=== PATIENT | female | born 1980 | race Caucasian/White ===

== ENCOUNTER 2016-11-25 14:02 | Emergency (ER) | payer OTHER ==
[2016-11-25] MEDS ORDERED: ONDANSETRON 4 MG/2 ML VIAL IVP STA (14:42)
--- NOTE | 2016-11-25 14:46 | ED ---
Abdominal Pain HPI - General Chief Complaint: Abdominal Pain Stated Complaint: Rt Flank Pain Time Seen by Provider: 11/25/16 14:27 Source: patient Mode of arrival: ambulatory Limitations: no limitations - History of Present Illness Initial Comments: 36-year-old female onset of abdominal pain for 4 days getting worse right upper quadrant feels like she is urinate but can't has had some darkening of the urine. No dysuria. No history kidney stones. He has some flank tenderness and pain. Previous history of gallbladder surgery. Has been nauseated no vomiting no diarrhea. - Related Data Home Medications Medication Instructions Recorded Confirmed FLUoxetine HCL [PROzac] 20 mg PO DAILY 11/25/16 11/25/16 traMADol HCL [Ultram] 50 mg PO Q6HR PRN 11/25/16 11/25/16 Previous Rx's Medication Instructions Recorded Amoxic-Pot Clav 875-125Mg 1 tab PO Q12HR #20 tablet 11/25/16 [Augmentin 875-125] Fluconazole [Diflucan] 100 mg PO DAILY #5 tablet 11/25/16 HYDROcodone/APAP 5-325MG [[place] 1 each PO Q6HR PRN #12 tab 11/25/16 5-325] Ondansetron Odt [Zofran Odt] 4 mg PO Q8HR PRN #6 tab 11/25/16 Allergies Allergy/AdvReac Type Severity Reaction Status Date / Time diclofenac sodium Allergy Unknown Verified 11/25/16 15:10 [From Arthrotec] misoprostol [From Arthrotec] Allergy Unknown Verified 11/25/16 15:10 Review of Systems ROS Statement: Those systems with pertinent positive or pertinent negative responses have been documented in the HPI. ROS Other: All systems not noted in ROS Statement are negative. Constitutional: Denies: fever, chills ENT: Denies: throat pain Respiratory: Denies: cough Cardiovascular: Reports: chest pain (Mild epigastric and frontal pain with deep breath) Gastrointestinal: Reports: abdominal pain, nausea. Denies: vomiting, diarrhea Genitourinary: Reports: urgency, frequency, other (Last period 2 days ago was normal). Denies: dysuria Skin: Denies: rash Neurological: Denies: headache Psychiatric: Denies: anxiety, depression Hematological/Lymphatic: Denies: easy bleeding, easy bruising Past Medical History Additional Past Medical History / Comment(s): rib fx History of Any Multi-Drug Resistant Organisms: None Reported Past Surgical History: Section, Cholecystectomy Past Psychological History: No Psychological Hx Reported Smoking Status: Never smoker Past Alcohol Use History: Rare Past Drug Use History: None Reported General Exam Limitations: no limitations General appearance: alert Head exam: Present: atraumatic Eye exam: Present: PERRL, EOMI ENT exam: Present: normal oropharynx, mucous membranes moist, TM's normal bilaterally Neck exam: Absent: tenderness Respiratory exam: Present: normal lung sounds bilaterally Cardiovascular Exam: Present: regular rate, normal heart sounds. Absent: systolic murmur GI/Abdominal exam: Present: tenderness (Tenderness right flank and right lower quadrant no rebound or guarding). Absent: guarding, rebound Extremities exam: Present: normal inspection Neurological exam: Present: alert, CN II-XII intact Psychiatric exam: Present: normal affect, normal mood Skin exam: Present: warm, dry Course Vital Signs 11/25/16 11/25/16 14:22 16:42 Temperature 98.1 F Pulse Rate 86 74 Respiratory 18 14 Rate Blood Pressure 157/78 124/64 O2 Sat by Pulse 97 96 Oximetry Medical Decision Making - Lab Data Result diagrams: 11/25/16 15:21 11/25/16 15:21 Lab Results 11/25/16 11/25/16 11/25/16 Range/Units 15:21 15:21 15:21 WBC 8.9 (3.8-10.6) k/uL RBC 4.58 (3.80-5.40) m/uL Hgb 13.8 (11.4-16.0) gm/dL Hct 41.4 (34.0-46.0) % MCV 90.4 (80.0-100.0) fL MCH 30.0 (25.0-35.0) pg MCHC 33.2 (31.0-37.0) g/dL RDW 13.2 (11.5-15.5) % Plt Count 478 H (150-450) k/uL Neutrophils % 68 % Lymphocytes % 23 % Monocytes % 5 % Eosinophils % 2 % Basophils % 1 % Neutrophils # 6.1 (1.3-7.7) k/uL Lymphocytes # 2.0 (1.0-4.8) k/uL Monocytes # 0.4 (0-1.0) k/uL Eosinophils # 0.2 (0-0.7) k/uL Basophils # 0.1 (0-0.2) k/uL Sodium 141 (137-145) mmol/L Potassium 4.0 (3.5-5.1) mmol/L Chloride 104 (98-107) mmol/L Carbon Dioxide 28 (22-30) mmol/L Anion Gap 9 mmol/L BUN 11 (7-17) mg/dL Creatinine 0.66 (0.52-1.04) mg/dL Est GFR (MDRD) Af Amer >60 (>60 ml/min/1.73 sqM) Est GFR (MDRD) Non-Af >60 (>60 ml/min/1.73 sqM) Glucose 96 (74-99) mg/dL Calcium 9.1 (8.4-10.2) mg/dL Total Bilirubin 0.7 (0.2-1.3) mg/dL AST 23 (14-36) U/L ALT 25 (9-52) U/L Alkaline Phosphatase 71 (38-126) U/L Total Protein 7.2 (6.3-8.2) g/dL Albumin 4.3 (3.5-5.0) g/dL Urine Color Yellow Urine Appearance Clear (Clear) Urine pH 5.5 (5.0-8.0) Ur Specific [place] 1.019 (1.001-1.035) Urine Protein Negative (Negative) Urine Glucose (UA) Negative (Negative) Urine Ketones Negative (Negative) Urine Blood Negative (Negative) Urine Nitrate Negative (Negative) Urine Bilirubin Negative (Negative) Urine Urobilinogen <2.0 (<2.0) mg/dL Ur Leukocyte Esterase Negative (Negative) Urine HCG, Qual (Not Detectd) 11/25/16 Range/Units 15:21 WBC (3.8-10.6) k/uL RBC (3.80-5.40) m/uL Hgb (11.4-16.0) gm/dL Hct (34.0-46.0) % MCV (80.0-100.0) fL MCH (25.0-35.0) pg MCHC (31.0-37.0) g/dL RDW (11.5-15.5) % Plt Count (150-450) k/uL Neutrophils % % Lymphocytes % % Monocytes % % Eosinophils % % Basophils % % Neutrophils # (1.3-7.7) k/uL Lymphocytes # (1.0-4.8) k/uL Monocytes # (0-1.0) k/uL Eosinophils # (0-0.7) k/uL Basophils # (0-0.2) k/uL Sodium (137-145) mmol/L Potassium (3.5-5.1) mmol/L Chloride (98-107) mmol/L Carbon Dioxide (22-30) mmol/L Anion Gap mmol/L BUN (7-17) mg/dL Creatinine (0.52-1.04) mg/dL Est GFR (MDRD) Af Amer (>60 ml/min/1.73 sqM) Est GFR (MDRD) Non-Af (>60 ml/min/1.73 sqM) Glucose (74-99) mg/dL Calcium (8.4-10.2) mg/dL Total Bilirubin (0.2-1.3) mg/dL AST (14-36) U/L ALT (9-52) U/L Alkaline Phosphatase (38-126) U/L Total Protein (6.3-8.2) g/dL Albumin (3.5-5.0) g/dL Urine Color Urine Appearance (Clear) Urine pH (5.0-8.0) Ur Specific [place] (1.001-1.035) Urine Protein (Negative) Urine Glucose (UA) (Negative) Urine Ketones (Negative) Urine Blood (Negative) Urine Nitrate (Negative) Urine Bilirubin (Negative) Urine Urobilinogen (<2.0) mg/dL Ur Leukocyte Esterase (Negative) Urine HCG, Qual Not Detected (Not Detectd) - Radiology Data Radiology results: report reviewed Flat plate of abdomen and chest x-ray is negative CT shows mid sigmoid diverticulitis, no stone no appendix. Disposition Clinical Impression: Diverticulitis Disposition: HOME SELF-CARE Condition: Good Prescriptions: Amoxic-Pot Clav 875-125Mg [Augmentin 875-125] 1 tab PO Q12HR #20 tablet Fluconazole [Diflucan] 100 mg PO DAILY #5 tablet HYDROcodone/APAP 5-325MG [[place] 5-325] 1 each PO Q6HR PRN #12 tab PRN Reason: Pain Ondansetron Odt [Zofran Odt] 4 mg PO Q8HR PRN #6 tab PRN Reason: Vomiting Referrals: Marcia Canales MD [Primary Care Provider] - 1-2 days Time of Disposition: 17:43
[2016-11-25] MEDS: HYDROmorphone 1 MG/ML 1 ML SYRINGE IVP STA ×2 (15:31→17:18)
[2016-11-25 15:35] LABS: Appearance,Urine Clear (Clear); Basophils # (A) 0.1 k/uL (0-0.2); Basophils % (A) 1 %; Bilirubin,Urine Negative (Negative); CHCM 33.3; Eosinophils # (A) 0.2 k/uL (0-0.7); Eosinophils % (A) 2 %; Glucose,Urine (UA) Negative (Negative); HCT 41.4 % (34.0-46.0); HDW 2.33; HGB 13.8 gm/dL (11.4-16.0); Ketones,Urine Negative (Negative); Leukocyte Esterase,Urine Negative (Negative); Luc # (Auto) 0.16; Luc % (Auto) 2; Lymphocytes % (A) 23 %; MCHC 33.2 g/dL (31.0-37.0); MCV 90.4 fL (80.0-100.0); Mean Platelet Volume 7.9; Monocytes # (A) 0.4 k/uL (0-1.0); Monocytes % (A) 5 %; Neutrophils # (A) 6.1 k/uL (1.3-7.7); Neutrophils % (A) 68 %; Nitrite,Urine Negative (Negative); PH, Urine 5.5 (5.0-8.0); Protein,Urine Negative (Negative); RBC 4.58 m/uL (3.80-5.40); RDW 13.2 % (11.5-15.5); Specific Gravity,Urine 1.019 (1.001-1.035); UA Billing (MACRO vs. MICRO) CHEM; Urobilinogen,Urine <2.0 mg/dL (<2.0); WBC 8.9 k/uL (3.8-10.6); WBC (Perox) 8.03
[2016-11-25 15:46] LABS: ALT 25 U/L (9-52); AST 23 U/L (14-36); Alkaline Phosphatase 71 U/L (38-126); Anion Gap 9 mmol/L; Blood Urea Nitrogen 11 mg/dL (7-17); Calcium 9.1 mg/dL (8.4-10.2); Carbon Dioxide 28 mmol/L (22-30); Chloride 104 mmol/L (98-107); Glucose 96 mg/dL (74-99); Non-African American GFR(MDRD) >60 (>60 ml/min/1.73 sqM); Sodium 141 mmol/L (137-145); Total Bilirubin 0.7 mg/dL (0.2-1.3); Total Protein 7.2 g/dL (6.3-8.2)
--- NOTE | 2016-11-25 15:59 | XR ---
EXAMINATION TYPE: XR chest 2V DATE OF EXAM: 11/25/2016 3:42 PM COMPARISON: 09/24/2015 HISTORY: 36-year-old female pain with deep inspiration TECHNIQUE: PA and lateral views FINDINGS: The cardiomediastinal silhouette, aorta, and pulmonary vasculature are within normal limits. Lungs an d pleural spaces are clear. IMPRESSION: No acute cardiopulmonary process.
--- NOTE | 2016-11-25 16:00 | XR ---
EXAMINATION TYPE: XR KUB DATE OF EXAM: 11/25/2016 3:42 PM CLINICAL DATA: 36-year-old female with abdominal pain, [facility] COMPARISON: 12/22/2012 FINDINGS: Lung bases are clear. No evidence for free intraperitoneal air. Cholecystectomy clips. No dilated small bowel or air-fluid levels. Scattered air and stool seen throughout the colon extendi ng distally into the rectum. Mild overall stool. No suspicious calcifications identified. Stable sclerotic focus right iliac bone suggests a benign etiology. There is right L5 hemisacralizati on incidentally noted. IMPRESSION: No evidence for free air or bowel obstruction. Mild scattered stool. Incidental right L5 hemisacraliz ation.
--- NOTE | 2016-11-25 16:33 | CT ---
EXAMINATION TYPE: CT abdomen pelvis wo con DATE OF EXAM: 11/25/2016 4:26 PM COMPARISON: NONE HISTORY: 36-year-old female Patient complains of right flank pain. CT DLP: 843.4 mGycm. Automated exposure control for dose reduction was used. TECHNIQUE: Contiguous axial scanning of the abdomen and pelvis without IV contrast. Coronal and sagit norma reconstructions performed. FINDINGS: Heart is normal size without pericardial effusion. Some patchy atelectasis inferior lingula without p leural effusion. The liver is mildly enlarged measuring 18 cm craniocaudal. No significant hepatic steatosis appreciat ed. Cholecystectomy clips. Adrenal glands, kidneys, spleen with hilar splenule, and pancreas appear within normal limits. No dilated small bowel, free fluid, or free air. No mesenteric or retroperitoneal lymphadenopathy. There is diffuse colonic diverticulosis with a short segment moderate wall thickening and surrounding inflammatory fat stranding along the mid to distal sigmoid, axial image 125. Bladder is partially urine distended. Uterus and both ovaries are visualized. Prominent follicular ch alessio in both ovaries. No abnormal fluid collection in the pelvis or pelvic lymphadenopathy seen. Bones: Degenerative disc disease at L4-L5 with trace grade 1 retrolisthesis. No osseous destructive p rocess. IMPRESSION: Diffuse colonic diverticulosis with acute diverticulitis at the level of the mid to distal sigmoid. T here is moderate surrounding inflammation without evidence for abscess or free air.
[2016-11-25 16:43] VITALS: RESP 14
[2016-11-25 18:02] VITALS: BP 114/70; PULSE 73; TEMP 97.1
== END 2016-11-25 18:19 | disposition home or self-care (01) ==
LOC: EC 14:02
DX: K57.32 Diverticulitis of large intestine without perforation or abscess without bleeding (principal); Z79.899 Other long term (current) drug therapy; Z88.8 Allergy status to other drugs, medicaments and biological substances; Z79.891 Long term (current) use of opiate analgesic
CPT/HCPCS: 36415; 80053; 85025; 81003; 81025; 87086; 87077; 87186; 71020; 74000; 74176; 99284; 96365; 96375 ×2; J2405; J0696; J1170

== ENCOUNTER 2016-12-11 14:52 | Inpatient (IN) | payer OTHER ==
[2016-12-11] MEDS ORDERED: MORPHINE SULFATE 4 MG/ML SYRINGE IV STA (15:58)
[2016-12-11] MEDS ORDERED: SODIUM CHLORIDE 0.9% 1,000 ML IV STA (15:58)
--- NOTE | 2016-12-11 16:03 | ED ---
General Adult HPI - General Chief complaint: Abdominal Pain Stated complaint: abdominal pain Time Seen by Provider: 12/11/16 15:53 Source: patient, RN notes reviewed Mode of arrival: ambulatory Limitations: no limitations - History of Present Illness Initial comments: Patient is a 36-year-old female who presents emergency room today with a chief complaint of right lower quadrant pain over the last 2 days. Patient does admit to symptoms her symptoms. Weeks ago when she was diagnosed with diverticulitis. Patient's labs reviewed that time did have a positive urinary culture. Patient does admit that the symptoms feel consistent with urinary tract infection that she's also had in the past. She denies any complaints or symptoms.Patient denies any recent fever, chills, shortness of breath, chest pain, back pain, nausea or vomiting, numbness or tingling, dysuria or hematuria , constipation or diarrhea, headaches or visual changes, or any other complaints. - Related Data Home Medications Medication Instructions Recorded Confirmed traMADol HCL [Ultram] 50 mg PO Q6HR PRN 11/25/16 12/11/16 FLUoxetine HCL [PROzac] 10 mg PO BID 12/11/16 12/11/16 HYDROcodone/APAP 7.5-325MG [[place] 1 tab PO Q6H PRN 12/11/16 12/11/16 7.5-325] Ibuprofen [Motrin] 600 mg PO Q8HR PRN 12/11/16 12/11/16 Allergies Allergy/AdvReac Type Severity Reaction Status Date / Time diclofenac sodium Allergy Unknown Verified 12/11/16 16:13 [From Arthrotec] misoprostol [From Arthrotec] Allergy Unknown Verified 12/11/16 16:13 Review of Systems ROS Statement: Those systems with pertinent positive or pertinent negative responses have been documented in the HPI. ROS Other: All systems not noted in ROS Statement are negative. Past Medical History Additional Past Medical History / Comment(s): rib fx History of Any Multi-Drug Resistant Organisms: None Reported Past Surgical History: Section, Cholecystectomy Past Psychological History: No Psychological Hx Reported Smoking Status: Never smoker Past Alcohol Use History: Rare Past Drug Use History: None Reported General Exam - General Exam Comments Initial Comments: General: The patient is awake and alert, in no distress, and does not appear acutely ill. Eye: Pupils are equal, round and reactive to light, extra-ocular movements are intact. No nystagmus. There is normal conjunctiva bilaterally. No signs of icterus. Ears, nose, mouth and throat: There are moist mucous membranes and no oral lesions. Neck: The neck is supple, there is no tenderness or JVD. Cardiovascular: There is a regular rate and rhythm. No murmur, rub or gallop is appreciated. Respiratory: Lungs are clear to auscultation, respirations are non-labored, breath sounds are equal. No wheezes, stridor, rales, or rhonchi. Gastrointestinal: Normal appearance abdomen. Normal bowel sounds. Abdomen soft on palpation. Patient does have mild tenderness right lower quadrant and suprapubic over the bladder. No rebound tenderness. No guarding. No CVA tenderness. Musculoskeletal: Normal ROM, no tenderness. Strength 5/5. Sensation intact. Pulses equal bilaterally 2+. Neurological: A&O x 3. CN II-XII intact, There are no obvious motor or sensory deficits. Coordination appears grossly intact. Speech is normal. Skin: Skin is warm and dry and no rashes or lesions are noted. Psychiatric: Cooperative, appropriate mood & affect, normal judgment. Limitations: no limitations Course Vital Signs 12/11/16 12/11/16 15:01 18:32 Temperature 97.3 F L 97.9 F Pulse Rate 82 92 Respiratory 18 18 Rate Blood Pressure 118/49 114/80 O2 Sat by Pulse 100 98 Oximetry Medical Decision Making - Medical Decision Making Patient reexamined at this time shows no signs of stress is resting comfortably in the stretcher. Does admit that her pain is beginning to return. Patient's labs reviewed shows 14,[address] shows persistent acute diverticulitis with mid sigmoid colon in the right pelvis. There is increasing severe wall thickening now present. Decreased round inflammatory change fairly stable from prior. There may be a contained perforation identified as read by radiologist Dr. Braun. Patient will be admitted to the hospital started on IV antibiotics. - Lab Data Result diagrams: 12/11/16 16:15 12/11/16 16:15 Lab Results 12/11/16 12/11/16 12/11/16 Range/Units 16:15 16:15 16:15 WBC 14.2 H (3.8-10.6) k/uL RBC 4.72 (3.80-5.40) m/uL Hgb 14.0 (11.4-16.0) gm/dL Hct 42.6 (34.0-46.0) % MCV 90.1 (80.0-100.0) fL MCH 29.7 (25.0-35.0) pg MCHC 32.9 (31.0-37.0) g/dL RDW 13.3 (11.5-15.5) % Plt Count 420 (150-450) k/uL Neutrophils % 83 % Lymphocytes % 11 % Monocytes % 3 % Eosinophils % 1 % Basophils % 1 % Neutrophils # 11.8 H (1.3-7.7) k/uL Lymphocytes # 1.5 (1.0-4.8) k/uL Monocytes # 0.5 (0-1.0) k/uL Eosinophils # 0.1 (0-0.7) k/uL Basophils # 0.1 (0-0.2) k/uL Sodium 139 (137-145) mmol/L Potassium 4.1 (3.5-5.1) mmol/L Chloride 106 (98-107) mmol/L Carbon Dioxide 23 (22-30) mmol/L Anion Gap 10 mmol/L BUN 9 (7-17) mg/dL Creatinine 0.70 (0.52-1.04) mg/dL Est GFR (MDRD) Af Amer >60 (>60 ml/min/1.73 sqM) Est GFR (MDRD) Non-Af >60 (>60 ml/min/1.73 sqM) Glucose 86 (74-99) mg/dL Calcium 9.2 (8.4-10.2) mg/dL Total Bilirubin 1.0 (0.2-1.3) mg/dL AST 17 (14-36) U/L ALT 35 (9-52) U/L Alkaline Phosphatase 70 (38-126) U/L Total Protein 7.1 (6.3-8.2) g/dL Albumin 4.3 (3.5-5.0) g/dL Amylase 47 (30-110) U/L Lipase 71 (23-300) U/L Urine Color Yellow Urine Appearance Clear (Clear) Urine pH 5.5 (5.0-8.0) Ur Specific [place] 1.021 (1.001-1.035) Urine Protein Negative (Negative) Urine Glucose (UA) Negative (Negative) Urine Ketones 1+ H (Negative) Urine Blood Trace H (Negative) Urine Nitrate Negative (Negative) Urine Bilirubin Negative (Negative) Urine Urobilinogen <2.0 (<2.0) mg/dL Ur Leukocyte Esterase Negative (Negative) Urine RBC 1 (0-5) /hpf Urine WBC 1 (0-5) /hpf Ur Squamous Epith Cells 3 (0-4) /hpf Urine Bacteria Rare H (None) /hpf Urine Mucus Many H (None) /hpf Urine HCG, Qual (Not Detectd) 12/11/16 Range/Units 16:15 WBC (3.8-10.6) k/uL RBC (3.80-5.40) m/uL Hgb (11.4-16.0) gm/dL Hct (34.0-46.0) % MCV (80.0-100.0) fL MCH (25.0-35.0) pg MCHC (31.0-37.0) g/dL RDW (11.5-15.5) % Plt Count (150-450) k/uL Neutrophils % % Lymphocytes % % Monocytes % % Eosinophils % % Basophils % % Neutrophils # (1.3-7.7) k/uL Lymphocytes # (1.0-4.8) k/uL Monocytes # (0-1.0) k/uL Eosinophils # (0-0.7) k/uL Basophils # (0-0.2) k/uL Sodium (137-145) mmol/L Potassium (3.5-5.1) mmol/L Chloride (98-107) mmol/L Carbon Dioxide (22-30) mmol/L Anion Gap mmol/L BUN (7-17) mg/dL Creatinine (0.52-1.04) mg/dL Est GFR (MDRD) Af Amer (>60 ml/min/1.73 sqM) Est GFR (MDRD) Non-Af (>60 ml/min/1.73 sqM) Glucose (74-99) mg/dL Calcium (8.4-10.2) mg/dL Total Bilirubin (0.2-1.3) mg/dL AST (14-36) U/L ALT (9-52) U/L Alkaline Phosphatase (38-126) U/L Total Protein (6.3-8.2) g/dL Albumin (3.5-5.0) g/dL Amylase (30-110) U/L Lipase (23-300) U/L Urine Color Urine Appearance (Clear) Urine pH (5.0-8.0) Ur Specific [place] (1.001-1.035) Urine Protein (Negative) Urine Glucose (UA) (Negative) Urine Ketones (Negative) Urine Blood (Negative) Urine Nitrate (Negative) Urine Bilirubin (Negative) Urine Urobilinogen (<2.0) mg/dL Ur Leukocyte Esterase (Negative) Urine RBC (0-5) /hpf Urine WBC (0-5) /hpf Ur Squamous Epith Cells (0-4) /hpf Urine Bacteria (None) /hpf Urine Mucus (None) /hpf Urine HCG, Qual Not Detected (Not Detectd) Disposition Clinical Impression: Acute diverticulitis Disposition: ADMITTED IP TO THIS [facility] Condition: Good Time of Disposition: 18:24
[2016-12-11 16:27] LABS: Basophils # (A) 0.1 k/uL (0-0.2); Basophils % (A) 1 %; CH 29.7; CHCM 33.1; Eosinophils # (A) 0.1 k/uL (0-0.7); Eosinophils % (A) 1 %; HCT 42.6 % (34.0-46.0); HDW 2.46; Luc # (Auto) 0.17; Luc % (Auto) 1; Lymphocytes # (A) 1.5 k/uL (1.0-4.8); Lymphocytes % (A) 11 %; MCH 29.7 pg (25.0-35.0); MCHC 32.9 g/dL (31.0-37.0); MCV 90.1 fL (80.0-100.0); Mean Platelet Volume 8.4; Monocytes # (A) 0.5 k/uL (0-1.0); Monocytes % (A) 3 %; Neutrophils # (A) 11.8 k/uL (1.3-7.7); Neutrophils % (A) 83 %; RBC 4.72 m/uL (3.80-5.40); RDW 13.3 % (11.5-15.5); WBC 14.2 k/uL (3.8-10.6); WBC (Perox) 14.08
[2016-12-11 16:30] LABS: Appearance,Urine Clear (Clear); Bacteria,Urine Rare /hpf; Bilirubin,Urine Negative (Negative); Glucose,Urine (UA) Negative (Negative); Ketones,Urine 1+ (Negative); Leukocyte Esterase,Urine Negative (Negative); Mucus,Urine Many /hpf; Nitrite,Urine Negative (Negative); PH, Urine 5.5 (5.0-8.0); Particle Count 8000; Protein,Urine Negative (Negative); RBC,Urine 1 /hpf (0-5); Specific Gravity,Urine 1.021 (1.001-1.035); Squamous Epithelial Cell,Urine 3 /hpf (0-4); UA Billing (MACRO vs. MICRO) MICRO; Urobilinogen,Urine <2.0 mg/dL (<2.0); WBC,Urine 1 /hpf (0-5)
[2016-12-11 16:36] LABS: ALT 35 U/L (9-52); AST 17 U/L (14-36); Alkaline Phosphatase 70 U/L (38-126); Amylase 47 U/L (30-110); Anion Gap 10 mmol/L; Blood Urea Nitrogen 9 mg/dL (7-17); Calcium 9.2 mg/dL (8.4-10.2); Carbon Dioxide 23 mmol/L (22-30); Chloride 106 mmol/L (98-107); Glucose 86 mg/dL (74-99); Non-African American GFR(MDRD) >60 (>60 ml/min/1.73 sqM); Potassium 4.1 mmol/L (3.5-5.1); Sodium 139 mmol/L (137-145); Total Protein 7.1 g/dL (6.3-8.2)
--- NOTE | 2016-12-11 16:39 | XR ---
EXAMINATION TYPE: XR KUB DATE OF EXAM: 12/11/2016 4:31 PM COMPARISON: 11/25/2016 HISTORY: Pain TECHNIQUE: Single supine KUB image of the abdomen is obtained FINDINGS: Small bowel demonstrates no evidence for dilatation or air fluid levels. Gas and fecal material is seen in non-distended colon. No convincing evidence for pneumoperitoneum. Cholecystectomy clips are in place. No unusual calcifications. The lung bases are clear. The osseous structures are intact. IMPRESSION: 1. Overall nonobstructive bowel gas pattern.
[2016-12-11] MEDS ORDERED: RX INFO: IV CONTRAST WAS GIVEN 1 EACH MISC MISCELLANE PRN (16:58)
--- NOTE | 2016-12-11 17:42 | CT ---
EXAMINATION TYPE: CT abdomen pelvis w con DATE OF EXAM: 12/11/2016 5:24 PM HISTORY: Right lower quadrant pain. History of diverticulitis [address] DLP: 1789.00mGycm Automated Exposure Control for Dose Reduction was Utilized. CONTRAST: CT scan of the abdomen and pelvis is performed without oral but with IV Contrast, patient injected wi th 100 mL of Omnipaque 300. COMPARISON: CT abdomen and pelvis November 25, 2016 FINDINGS: LUNG BASES: No significant abnormality is appreciated. LIVER/GB: Cholecystectomy clips are redemonstrated. PANCREAS: No significant abnormality is seen. SPLEEN: No significant abnormality is seen. ADRENALS: No significant abnormality is seen. KIDNEYS: No significant abnormality is seen. BOWEL:. Evaluation bowel is suboptimal due to lack of enteric contrast. There is no suspicious small or large bowel dilatation. Normal-appearing appendix is seen medially from the cecum best near cast l image 36. There are some diverticula scattered throughout the colon. There is severe wall thickenin g in the mid sigmoid colon in the right pelvis centered near axial image 71 with mild to moderate nicola rounding fluid and fat stranding. Findings are consistent with an acute diverticulitis. Some foci of air are suspicious for contained perforation for reference axial image 66. No pneumoperitoneum defini tively seen. No well-formed fluid collection or abscess is identified. Level of findings similar to p rior study. UTERUS/ADNEXA: Uterus is anteverted in shape and within normal limits in size. Both ovaries are prese nt. Left ovary slightly more prominent with scattered prominent follicles or simple small ovarian cys ts suspected LYMPH NODES: No greater than 1cm abdominal or pelvic lymph nodes are appreciated. OSSEOUS STRUCTURES: Disc space narrowing L4-L5 and L5-S1 levels is redemonstrated. OTHER: Small fat-containing umbilical hernia is redemonstrated. IMPRESSION: Persistent acute diverticulitis mid sigmoid colon in the right pelvis. There is increasin g severe wall thickening now present. Degree of surrounding inflammatory change fairly stable from pr ior. There may be contained perforation now identified. No free air or well-formed drainable abscess is noted.
[2016-12-11] MEDS ORDERED: HYDROmorphone 1 MG/ML 1 ML SYRINGE IVP STA (18:14)
[2016-12-11] MEDS ORDERED: LEVOFLOXACIN 500MG-D5W PMX 500 MG in DEXTROSE/WATER 1 100ML.BAG IVPB STA (18:26)
[2016-12-11] MEDS ORDERED: metroNIDAZOLE-NS PMX 500 MG in SALINE 1 100ML.BAG IVPB STA (18:26)
[2016-12-11] MEDS ORDERED: SODIUM CHLORIDE 0.9% 1,000 ML IV ONE (18:27)
[2016-12-11] MEDS ORDERED: NALOXONE 0.4 MG/ML 1 ML VIAL IV PRN (18:27)
[2016-12-11] MEDS ORDERED: ONDANSETRON 4 MG/2 ML VIAL IVP STA (19:25)
[2016-12-11] MEDS: MORPHINE SULFATE 4 MG/ML SYRINGE IV PRN (21:58)
[2016-12-11 22:09] VITALS: BMI 38.6
[2016-12-12] MEDS: HYDROmorphone 1 MG/ML 1 ML SYRINGE IV PRN ×3 (01:56→23:26)
[2016-12-12] MEDS: metroNIDAZOLE-NS PMX 500 MG in SALINE 1 100ML.BAG IVPB SCH ×4 (01:57→23:26)
[2016-12-12] MEDS ORDERED: LORATADINE 10 MG TAB PO PRN (05:14)
[2016-12-12 07:41] LABS: ALT 29 U/L (9-52); AST 13 U/L (14-36); Alkaline Phosphatase 49 U/L (38-126); Anion Gap 10 mmol/L; Basophils % (A) 0 %; Blood Urea Nitrogen 6 mg/dL (7-17); CH 29.8; CHCM 32.5; Calcium 8.2 mg/dL (8.4-10.2); Carbon Dioxide 22 mmol/L (22-30); Chloride 107 mmol/L (98-107); Eosinophils % (A) 0 %; Glucose 89 mg/dL (74-99); HCT 37.2 % (34.0-46.0); HDW 2.41; HGB 11.7 gm/dL (11.4-16.0); Luc # (Auto) 0.16; Luc % (Auto) 2; Lymphocytes # (A) 1.3 k/uL (1.0-4.8); Lymphocytes % (A) 14 %; MCHC 31.4 g/dL (31.0-37.0); MCV 92.4 fL (80.0-100.0); Mean Platelet Volume 8.2; Monocytes # (A) 0.5 k/uL (0-1.0); Monocytes % (A) 5 %; Neutrophils # (A) 7.6 k/uL (1.3-7.7); Neutrophils % (A) 79 %; Non-African American GFR(MDRD) >60 (>60 ml/min/1.73 sqM); RBC 4.03 m/uL (3.80-5.40); RDW 13.1 % (11.5-15.5); Sodium 139 mmol/L (137-145); Total Bilirubin 1.1 mg/dL (0.2-1.3); Total Protein 5.8 g/dL (6.3-8.2); WBC 9.6 k/uL (3.8-10.6); WBC (Perox) 10.31
[2016-12-12] MEDS: MORPHINE SULFATE 4 MG/ML SYRINGE IV PRN ×2 (08:52→13:54)
--- NOTE | 2016-12-12 13:24 | P.HPIM ---
History of Present Illness H&P Date: 12/12/16 Chief Complaint: Abdominal pain Patient is a 36-year-old female with known history of diverticulosis and previous episode of acute diverticulitis who presented to the office few days prior to this admission complaining of abdominal pain similar to what she had on her previous episode of acute diverticulitis she was started on oral antibiotics, she improved however her condition started to worsen again she decided to come to emergency room she had a computed tomography scan of the abdomen and pelvis that revealed evidence of sigmoid diverticulitis with possible microperforation she was admitted to medical floor she was started on IV antibiotic and surgical consultation was requested. Past Medical History Additional Past Medical History / Comment(s): rib fx. Previous history of acute diverticulitis History of Any Multi-Drug Resistant Organisms: None Reported Past Surgical History: Section, Cholecystectomy Past Anesthesia/Blood Transfusion Reactions: No Reported Reaction Past Psychological History: No Psychological Hx Reported Smoking Status: Never smoker Past Alcohol Use History: Rare Past Drug Use History: None Reported - Past Family History Father Family Medical History: Unable to Obtain Mother Family Medical History: Unable to Obtain Medications and Allergies Home Medications Medication Instructions Recorded Confirmed Type traMADol HCL [Ultram] 50 mg PO Q6HR PRN 11/25/16 12/11/16 History FLUoxetine HCL [PROzac] 10 mg PO BID 12/11/16 12/11/16 History HYDROcodone/APAP 7.5-325MG [[place] 1 tab PO Q6H PRN 12/11/16 12/11/16 History 7.5-325] Ibuprofen [Motrin] 600 mg PO Q8HR PRN 12/11/16 12/11/16 History Allergies Allergy/AdvReac Type Severity Reaction Status Date / Time diclofenac sodium Allergy Unknown Verified 12/11/16 16:13 [From Arthrotec] misoprostol [From Arthrotec] Allergy Unknown Verified 12/11/16 16:13 Physical Exam Vitals: Vital Signs Temp Pulse Pulse Pulse Resp BP BP 12/12/16 07:36 96.4 F L 82 18 105/56 12/12/16 00:00 86 16 12/11/16 22:50 98.3 F 86 16 111/58 12/11/16 20:11 98.4 F 80 16 109/64 12/11/16 19:38 82 18 100/58 Pulse Ox 12/12/16 07:36 98 12/12/16 00:00 12/11/16 22:50 94 L 12/11/16 20:11 95 12/11/16 19:38 95 Intake and Output 12/11/16 12/12/16 12/12/16 22:59 06:59 14:59 Intake Total 300 800 Balance 300 800 Intake: Intake, IV Titration 300 800 Amount Sodium Chloride 0.9% 1, 200 700 000 ml @ 100 mls/hr IV . Q10H ONE Rx#:[id number] metroNIDAZOLE-NS PMX 500 100 mg In Saline 1 100ml.bag @ 100 mls/hr IVPB ONCE STA Rx#:[id number] metroNIDAZOLE-NS PMX 500 100 mg In Saline 1 100ml.bag @ 100 mls/hr IVPB Q8HR MERYL Rx#:[id number] Other: Voiding Method Toilet Toilet # Voids 1 1 Weight 102 kg 102 kg In general patient is alert and oriented 3 in no apparent distress HEENT head normocephalic and atraumatic Neck is supple no JVD no goiter no lymphadenopathy Chest exam is clear to auscultation no crackles no wheezing Cardiac exam reveals regular heart sounds no gallops no murmurs Abdomen is soft nontender no organomegaly Extremity exam reveals no edema no cyanosis or clubbing Results CBC & Chem 7: 12/12/16 07:15 12/12/16 07:15 Labs: Abnormal Lab Results - Last 24 Hours (Table) 12/12/16 Range/Units 07:15 BUN 6 L (7-17) mg/dL Calcium 8.2 L (8.4-10.2) mg/dL AST 13 L (14-36) U/L Total Protein 5.8 L (6.3-8.2) g/dL Albumin 3.3 L (3.5-5.0) g/dL Thrombosis Risk Factor Assmnt - Choose All That Apply Any of the Below Risk Factors Present?: No Other Risk Factors: No Other congenital or acquired thrombophilia - If yes, enter type in comment: No Thrombosis Risk Factor Assessment Level: Very Low Risk Assessment and Plan Plan: #1 acute diverticulitis #2 possible microperforation #3 underlying history of depression would resume Prozac At this time continue was current IV antibiotic Surgical consultation requested Recheck labs in a.m. Will follow closely
--- NOTE | 2016-12-12 14:04 | P.GSCN ---
History of Present Illness Consult date: 12/12/16 Reason for Consult: Acute diverticulitis with microperforation Requesting physician: Nura Yee History of present illness: Patient is a 36-year-old female, patient of Dr. Canales in the outpatient setting, admitted through the emergency department with complains of right lower quadrant pain. Apparently patient was diagnosed with acute diverticulitis 2 weeks ago in the emergency department and was started on antibiotics. Patient states she initially felt better but over the weekend her right lower quadrant pain returned and intensified in nature. Patient describes her abdominal pain as stabbing, currently rated 4 out of 10, exacerbated after eating eating, associated with occasional nausea without vomiting. No history of fevers, chills, shortness of breath, or chest pain. Patient reports abnormal bowel function with mostly loose bowel movements. CT of abdomen and pelvis with evidence of persistent acute diverticulitis mid sigmoid colon in the right pelvis with micro-perforation without free air or well-formed drainable abscess. Patient did have leukocytosis on admission. Patient was admitted on IV antibiotics in the form of Levaquin and Flagyl. Surgical consult requested for acute diverticulitis with microperforation. Past Medical History Additional Past Medical History / Comment(s): rib fx. Previous history of acute diverticulitis History of Any Multi-Drug Resistant Organisms: None Reported Past Surgical History: Section, Cholecystectomy Past Anesthesia/Blood Transfusion Reactions: No Reported Reaction Past Psychological History: No Psychological Hx Reported Smoking Status: Never smoker Past Alcohol Use History: Rare Past Drug Use History: None Reported - Past Family History Father Family Medical History: Unable to Obtain Mother Family Medical History: Unable to Obtain Medications and Allergies Home Medications Medication Instructions Recorded Confirmed Type traMADol HCL [Ultram] 50 mg PO Q6HR PRN 11/25/16 12/11/16 History FLUoxetine HCL [PROzac] 10 mg PO BID 12/11/16 12/11/16 History HYDROcodone/APAP 7.5-325MG [[place] 1 tab PO Q6H PRN 12/11/16 12/11/16 History 7.5-325] Ibuprofen [Motrin] 600 mg PO Q8HR PRN 12/11/16 12/11/16 History Allergies Allergy/AdvReac Type Severity Reaction Status Date / Time diclofenac sodium Allergy Unknown Verified 12/11/16 16:13 [From [employer]] misoprostol [From [employer]] Allergy Unknown Verified 12/11/16 16:13 Surgical - Exam Vital Signs Temp Pulse Resp BP Pulse Ox 97.3 F L 82 18 118/49 100 12/11/16 15:01 12/11/16 15:01 12/11/16 15:01 12/11/16 15:01 12/11/16 15:01 GENERAL: Pt awake and alert, well-appearing, well-nourished, and in no acute distress. HEAD: Atraumatic, normocephalic. EYES: Pupils equal, round, and reactive to light. Sclera anicteric, conjunctiva are normal. ENT: Moist mucous membranes. NECK: Supple without lymphadenopathy. LUNGS: Breath sounds clear to auscultation bilaterally. No wheezes, rales, or rhonchi. HEART: Heart S1, S2, no S3 or S4. Regular rate and rhythm. No murmurs, rubs or gallops. ABDOMEN: Soft, obese, moderate right lower quadrant tenderness, nondistended, normoactive bowel sounds. No guarding, no rebound. No masses or organomegaly appreciated. EXTREMITIES: Palpable peripheral pulses. No edema. No calf tenderness. NEUROLOGICAL: Pt oriented x 3. No focal deficits noted. Strength and sensation grossly intact. PSYCH: Normal mood, normal affect. SKIN: Warm, dry, intact. Results - Labs 12/12/16 07:15 12/12/16 07:15 Abnormal Lab Results - Last 24 Hours (Table) 12/12/16 Range/Units 07:15 BUN 6 L (7-17) mg/dL Calcium 8.2 L (8.4-10.2) mg/dL AST 13 L (14-36) U/L Total Protein 5.8 L (6.3-8.2) g/dL Albumin 3.3 L (3.5-5.0) g/dL Diabetes panel 12/12/16 Range/Units 07:15 Sodium 139 (137-145) mmol/L Potassium 4.0 (3.5-5.1) mmol/L Chloride 107 (98-107) mmol/L Carbon Dioxide 22 (22-30) mmol/L BUN 6 L (7-17) mg/dL Creatinine 0.67 (0.52-1.04) mg/dL Glucose 89 (74-99) mg/dL Calcium 8.2 L (8.4-10.2) mg/dL AST 13 L (14-36) U/L ALT 29 (9-52) U/L Alkaline Phosphatase 49 (38-126) U/L Total Protein 5.8 L (6.3-8.2) g/dL Albumin 3.3 L (3.5-5.0) g/dL Calcium panel 12/12/16 Range/Units 07:15 Calcium 8.2 L (8.4-10.2) mg/dL Albumin 3.3 L (3.5-5.0) g/dL Pituitary panel 12/12/16 Range/Units 07:15 Sodium 139 (137-145) mmol/L Potassium 4.0 (3.5-5.1) mmol/L Chloride 107 (98-107) mmol/L Carbon Dioxide 22 (22-30) mmol/L BUN 6 L (7-17) mg/dL Creatinine 0.67 (0.52-1.04) mg/dL Glucose 89 (74-99) mg/dL Calcium 8.2 L (8.4-10.2) mg/dL Adrenal panel 12/12/16 Range/Units 07:15 Sodium 139 (137-145) mmol/L Potassium 4.0 (3.5-5.1) mmol/L Chloride 107 (98-107) mmol/L Carbon Dioxide 22 (22-30) mmol/L BUN 6 L (7-17) mg/dL Creatinine 0.67 (0.52-1.04) mg/dL Glucose 89 (74-99) mg/dL Calcium 8.2 L (8.4-10.2) mg/dL Total Bilirubin 1.1 (0.2-1.3) mg/dL AST 13 L (14-36) U/L ALT 29 (9-52) U/L Alkaline Phosphatase 49 (38-126) U/L Total Protein 5.8 L (6.3-8.2) g/dL Albumin 3.3 L (3.5-5.0) g/dL - Imaging Abdominal x-ray: report reviewed (Overall nonobstructive bowel gas pattern) Assessment and Plan Plan: Impression: 1. Persistent acute diverticulitis with microperforation of mid sigmoid colon in the right pelvis without free air or well-formed drainable abscess, failed outpatient treatment. 2. Diverticulosis. Plan: Start patient on liquid diet. Continue IV antibiotics in the form of Levaquin and Flagyl. Continue supportive treatment and pain management. Continue IV hydration. Repeat CBC and BMP in a.m. The above impression and plan have been discussed and directed by Dr. Smith. Angus ANNE acting as scribe for Dr. Smith.
[2016-12-12] MEDS: FLUoxetine HCL 10 MG CAP PO SCH ×2 (14:58→21:53)
[2016-12-12] MEDS: ONDANSETRON 4 MG/2 ML VIAL IVP PRN (17:39)
[2016-12-12] MEDS: LEVOFLOXACIN 500MG-D5W PMX 500 MG in DEXTROSE/WATER 1 100ML.BAG IVPB SCH (17:40)
[2016-12-13] MEDS: SODIUM CHLORIDE 0.9% 1,000 ML IV SCH ×2 (04:46→15:45)
[2016-12-13 08:24] LABS: Basophils % (A) 1 %; CH 29.5; CHCM 32.3; Eosinophils % (A) 1 %; HCT 37.2 % (34.0-46.0); HDW 2.46; HGB 11.9 gm/dL (11.4-16.0); Luc # (Auto) 0.14; Luc % (Auto) 2; Lymphocytes # (A) 1.6 k/uL (1.0-4.8); Lymphocytes % (A) 26 %; MCH 29.3 pg (25.0-35.0); MCV 91.6 fL (80.0-100.0); Mean Platelet Volume 7.7; Monocytes # (A) 0.4 k/uL (0-1.0); Monocytes % (A) 6 %; Neutrophils # (A) 3.9 k/uL (1.3-7.7); Neutrophils % (A) 64 %; RBC 4.07 m/uL (3.80-5.40); RDW 13.1 % (11.5-15.5); WBC 6.1 k/uL (3.8-10.6)
[2016-12-13] MEDS: metroNIDAZOLE-NS PMX 500 MG in SALINE 1 100ML.BAG IVPB SCH ×2 (08:30→18:05)
[2016-12-13] MEDS: FLUoxetine HCL 10 MG CAP PO SCH ×2 (08:32→20:03)
[2016-12-13 08:39] LABS: Anion Gap 10 mmol/L; Blood Urea Nitrogen 4 mg/dL (7-17); Calcium 8.4 mg/dL (8.4-10.2); Carbon Dioxide 24 mmol/L (22-30); Chloride 107 mmol/L (98-107); Glucose 97 mg/dL (74-99); Non-African American GFR(MDRD) >60 (>60 ml/min/1.73 sqM); Potassium 4.1 mmol/L (3.5-5.1); Sodium 141 mmol/L (137-145)
--- NOTE | 2016-12-13 12:08 | P.PN ---
Subjective Principal diagnosis: Acute diverticulitis with microperforation Patient is a 36-year-old female admitted with complaints of right lower quadrant pain and evidence of acute mid sigmoid colon diverticulitis with microperforation. Patient is evaluated on the medical floor. Patient reports improvement in right lower quadrant abdominal pain. Denies chills, fevers, nausea, vomiting, shortness of breath, or chest pain. Patient is urinating without difficulty. Patient is passing flatus. No bowel movement since admissions. Tolerating clear liquid diet. Afebrile. No evidence of leukocytosis. Objective - Vital Signs Vital signs: Vital Signs Temp 98.3 F 12/13/16 07:00 Pulse 90 12/13/16 07:00 Resp 16 12/13/16 07:00 BP 105/56 12/13/16 07:00 Pulse Ox 95 12/13/16 07:00 Intake & Output 12/12/16 12/13/16 12/13/16 18:59 06:59 18:59 Intake Total 300 Balance 300 Intake: IV 100 metroNIDAZOLE-NS PMX 500 100 mg In Saline 1 100ml.bag @ 100 mls/hr IVPB Q8HR [facility] Rx#:[id number] Oral 200 Other: Voiding Method Toilet Toilet Toilet # Voids 2 1 - Exam GENERAL: Pt awake and alert, well-appearing, well-nourished, and in no acute distress. HEAD: Atraumatic, normocephalic. EYES: Pupils equal, round, and reactive to light. Sclera anicteric, conjunctiva are normal. ENT: Moist mucous membranes. NECK: Supple without lymphadenopathy. LUNGS: Breath sounds clear to auscultation bilaterally. No wheezes, rales, or rhonchi. HEART: Heart S1, S2, no S3 or S4. Regular rate and rhythm. No murmurs, rubs or gallops. ABDOMEN: Soft, obese, moderate right lower quadrant tenderness, nondistended, normoactive bowel sounds. No guarding, no rebound. No masses or organomegaly appreciated. EXTREMITIES: Palpable peripheral pulses. No edema. No calf tenderness. NEUROLOGICAL: Pt oriented x 3. No focal deficits noted. Strength and sensation grossly intact. PSYCH: Normal mood, normal affect. SKIN: Warm, dry, intact. - Labs CBC & Chem 7: 12/13/16 07:38 12/13/16 07:38 Labs: Abnormal Lab Results - Last 24 Hours (Table) 12/13/16 Range/Units 07:38 BUN 4 L (7-17) mg/dL Assessment and Plan Plan: Impression: 1. Persistent acute diverticulitis with microperforation of mid sigmoid colon in the right pelvis without free air or well-formed drainable abscess, failed outpatient treatment. 2. Diverticulosis. Plan: Advance diet to full liquids. Continue IV antibiotics in the form of Levaquin and Flagyl. Continue supportive treatment and pain management. Continue IV hydration. Repeat CBC and BMP in a.m. The above impression and plan have been discussed and directed by Dr. Smith. Angus ANNE acting as scribe for Dr. Smith.
[2016-12-13] MEDS: MORPHINE SULFATE 4 MG/ML SYRINGE IV PRN (15:41)
--- NOTE | 2016-12-13 17:50 | P.PN ---
Subjective Principal diagnosis: Acute diverticulitis with microperforation of the mid sigmoid colon, failed outpatient treatment Patient is a 36-year-old female admitted to [facility] with severe abdominal pain Patient was evaluated as outpatient and diagnosed with acute diverticulitis she was given oral Levaquin and oral Flagyl Her condition continued to worsen and she decided to come to emergency room she had a computed tomography scan of the abdomen and pelvis that revealed evidence of acute diverticulitis with microperforation of the mid sigmoid colon she was started on IV Flagyl and IV Levaquin and was admitted to surgical floor surgical consultation was requested. Objective - Vital Signs Vital signs: Vital Signs Temp 98.2 F 12/13/16 15:00 Pulse 70 12/13/16 15:00 Resp 16 12/13/16 15:00 BP 112/67 12/13/16 15:00 Pulse Ox 94 L 12/13/16 15:00 Intake & Output 12/12/16 12/13/16 12/13/16 18:59 06:59 18:59 Intake Total 300 100 Balance 300 100 Intake: IV 100 100 metroNIDAZOLE-NS PMX 500 100 100 mg In Saline 1 100ml.bag @ 100 mls/hr IVPB Q8HR [facility] Rx#:[id number] Oral 200 Other: Voiding Method Toilet Toilet Toilet # Voids 2 1 - Exam In general patient is alert and oriented 3 in no apparent distress HEENT head normocephalic and atraumatic Neck is supple no JVD no goiter no lymphadenopathy Chest is clear to auscultation no wheezing Cardiac exam reveals regular heart sounds no murmurs Abdomen is soft nontender no organomegaly Extremity exam reveals no edema - Labs CBC & Chem 7: 12/13/16 07:38 12/13/16 07:38 Labs: Abnormal Lab Results - Last 24 Hours (Table) 12/13/16 Range/Units 07:38 BUN 4 L (7-17) mg/dL Assessment and Plan Plan: #1 acute diverticulitis, failed outpatient treatment with oral antibiotics #2 microperforation of the mid sigmoid colon #3 underlying history of depression would resume Prozac At this time continue with current IV antibiotic Surgical consultation following no intervention recommended at this time Recheck labs in a.m. Will follow closely
[2016-12-13] MEDS: ONDANSETRON 4 MG/2 ML VIAL IVP PRN (20:03)
[2016-12-13] MEDS: LEVOFLOXACIN 500MG-D5W PMX 500 MG in DEXTROSE/WATER 1 100ML.BAG IVPB SCH (20:03)
[2016-12-13] MEDS: HYDROmorphone 1 MG/ML 1 ML SYRINGE IV PRN (21:45)
[2016-12-14] MEDS: metroNIDAZOLE-NS PMX 500 MG in SALINE 1 100ML.BAG IVPB SCH ×4 (00:36→23:48)
[2016-12-14] MEDS: SODIUM CHLORIDE 0.9% 1,000 ML IV SCH ×3 (00:40→11:51)
[2016-12-14] MEDS: ONDANSETRON 4 MG/2 ML VIAL IVP PRN ×2 (01:58→20:17)
[2016-12-14] MEDS: FLUoxetine HCL 10 MG CAP PO SCH ×2 (08:24→20:17)
[2016-12-14 09:36] LABS: Basophils % (A) 0 %; CH 29.7; CHCM 32.7; Eosinophils % (A) 1 %; HCT 38.9 % (34.0-46.0); HDW 2.49; HGB 12.5 gm/dL (11.4-16.0); Luc % (Auto) 2; Lymphocytes # (A) 1.3 k/uL (1.0-4.8); Lymphocytes % (A) 22 %; MCH 29.4 pg (25.0-35.0); MCHC 32.2 g/dL (31.0-37.0); MCV 91.3 fL (80.0-100.0); Mean Platelet Volume 8.1; Monocytes # (A) 0.2 k/uL (0-1.0); Monocytes % (A) 4 %; Neutrophils # (A) 4.2 k/uL (1.3-7.7); Neutrophils % (A) 72 %; RBC 4.25 m/uL (3.80-5.40); RDW 13.2 % (11.5-15.5); WBC 5.8 k/uL (3.8-10.6); WBC (Perox) 6.32
[2016-12-14 09:44] LABS: ALT 24 U/L (9-52); AST 16 U/L (14-36); Alkaline Phosphatase 52 U/L (38-126); Anion Gap 11 mmol/L; Blood Urea Nitrogen <2 mg/dL (7-17); Calcium 9.3 mg/dL (8.4-10.2); Carbon Dioxide 23 mmol/L (22-30); Chloride 106 mmol/L (98-107); Glucose 129 mg/dL (74-99); Non-African American GFR(MDRD) >60 (>60 ml/min/1.73 sqM); Potassium 4.5 mmol/L (3.5-5.1); Sodium 140 mmol/L (137-145); Total Bilirubin 0.5 mg/dL (0.2-1.3); Total Protein 6.1 g/dL (6.3-8.2)
[2016-12-14] MEDS ORDERED: FLUCONAZOLE 150 MG TAB PO STA (10:34)
--- NOTE | 2016-12-14 10:34 | P.PN ---
Subjective Acute diverticulitis with microperforation of the mid sigmoid colon, failed outpatient treatment Patient is a 36-year-old female admitted to [facility] with severe abdominal pain Patient was evaluated as outpatient and diagnosed with acute diverticulitis she was given oral Levaquin and oral Flagyl Her condition continued to worsen and she decided to come to emergency room she had a computed tomography scan of the abdomen and pelvis that revealed evidence of acute diverticulitis with microperforation of the mid sigmoid colon she was started on IV Flagyl and IV Levaquin and was admitted to surgical floor surgical consultation was requested. patient was evaluated by surgical service. No surgical intervention at this time. Patient is tolerating a diet. Case discussed with surgery they're planning to advance diet to soft. Patient's pain is showing improvement. Still having some right lower quadrant pain at times. Denies any chest pain or shortness breath. Denies any nausea or vomiting. Patient did have soft brown stool no blood. Denies any difficulty urinating. Objective - Vital Signs Vital signs: Vital Signs Temp 98.1 F 12/14/16 07:00 Pulse 83 12/14/16 07:00 Resp 18 12/14/16 07:00 BP 116/67 12/14/16 07:00 Pulse Ox 97 12/14/16 07:00 Intake & Output 12/13/16 12/14/16 12/14/16 18:59 06:59 18:59 Intake Total 100 1720 Balance 100 1720 Intake: IV 100 900 Sodium Chloride 0.9% 1, 800 000 ml @ 100 mls/hr IV . Q10H [facility] Rx#:[id number] metroNIDAZOLE-NS PMX 500 100 100 mg In Saline 1 100ml.bag @ 100 mls/hr IVPB Q8HR [facility] Rx#:[id number] Oral 820 Other: Voiding Method Toilet Toilet # Voids 2 - Exam Head normocephalic Neck supple Lungs clear to auscultation bilaterally no wheezing or crackles Heart regular rate and rhythm S1-S2, no rub or gallop Abdomen is soft nondistended positive bowel sounds right lower quadrant tenderness Extremities no edema Neuro alert and orientated to 3 - Labs CBC & Chem 7: 12/14/16 08:24 12/14/16 08:24 Labs: Abnormal Lab Results - Last 24 Hours (Table) 12/14/16 Range/Units 08:24 BUN <2 L (7-17) mg/dL Glucose 129 H (74-99) mg/dL Total Protein 6.1 L (6.3-8.2) g/dL Assessment and Plan Plan: #1 acute diverticulitis, failed outpatient treatment with oral antibiotics #2 microperforation of the mid sigmoid colon. Evaluated by surgical service. No plan for surgical intervention at this time. She was antibiotics. Case discussed with surgical service. They're advancing diet to a soft diet. We'll start patient on oral pain medication with Jones. #3 underlying history of depression would resume Prozac anticipate discharge possibly tomorrow as long as patient is tolerating diet and pain shows improvement
--- NOTE | 2016-12-14 11:47 | P.PN ---
Subjective Principal diagnosis: Acute diverticulitis with microperforation Patient is a 36-year-old female admitted with complaints of right lower quadrant pain and evidence of acute mid sigmoid colon diverticulitis with microperforation. Patient is evaluated on the medical floor. Patient reports improvement in right lower quadrant abdominal pain since yesterday. Denies chills, fevers, nausea, vomiting, shortness of breath, or chest pain. Patient is urinating without difficulty. Patient is passing flatus and had a bowel movement this morning. Tolerating a full liquid diet. Afebrile. No evidence of leukocytosis. Patient states she is hungry. Objective - Vital Signs Vital signs: Vital Signs Temp 98.1 F 12/14/16 07:00 Pulse 83 12/14/16 07:00 Resp 18 12/14/16 07:00 BP 116/67 12/14/16 07:00 Pulse Ox 97 12/14/16 07:00 Intake & Output 12/13/16 12/14/16 12/14/16 18:59 06:59 18:59 Intake Total 100 1720 Balance 100 1720 Intake: IV 100 900 Sodium Chloride 0.9% 1, 800 000 ml @ 100 mls/hr IV . Q10H [facility] Rx#:[id number] metroNIDAZOLE-NS PMX 500 100 100 mg In Saline 1 100ml.bag @ 100 mls/hr IVPB Q8HR [facility] Rx#:[id number] Oral 820 Other: Voiding Method Toilet Toilet # Voids 2 - Exam GENERAL: Pt awake and alert, well-appearing, well-nourished, and in no acute distress. HEAD: Atraumatic, normocephalic. EYES: Pupils equal, round, and reactive to light. Sclera anicteric, conjunctiva are normal. ENT: Moist mucous membranes. NECK: Supple without lymphadenopathy. LUNGS: Breath sounds clear to auscultation bilaterally. No wheezes, rales, or rhonchi. HEART: Heart S1, S2, no S3 or S4. Regular rate and rhythm. No murmurs, rubs or gallops. ABDOMEN: Soft, obese, moderate right lower quadrant tenderness, nondistended, normoactive bowel sounds. No guarding, no rebound. No masses or organomegaly appreciated. EXTREMITIES: Palpable peripheral pulses. No edema. No calf tenderness. NEUROLOGICAL: Pt oriented x 3. No focal deficits noted. Strength and sensation grossly intact. PSYCH: Normal mood, normal affect. SKIN: Warm, dry, intact. - Labs CBC & Chem 7: 12/14/16 08:24 12/14/16 08:24 Labs: Abnormal Lab Results - Last 24 Hours (Table) 12/14/16 Range/Units 08:24 BUN <2 L (7-17) mg/dL Glucose 129 H (74-99) mg/dL Total Protein 6.1 L (6.3-8.2) g/dL Assessment and Plan Plan: Impression: 1. Persistent acute diverticulitis with microperforation of mid sigmoid colon in the right pelvis without free air or well-formed drainable abscess, failed outpatient treatment. 2. Diverticulosis. Plan: Advance diet to soft diet. Continue IV antibiotics in the form of Levaquin and Flagyl. Continue supportive treatment and pain management. Decrease IV to KVO. Repeat CBC and BMP in a.m. Possibly discharge the next 24 hours pending clinical course. The above impression and plan have been discussed and directed by Dr. Smith. Angus ANNE acting as scribe for Dr. Smith.
[2016-12-14] MEDS: HYDROcodone/APAP 7.5-325MG 1 EACH TAB PO PRN ×2 (11:49→21:21)
[2016-12-14] MEDS: MORPHINE SULFATE 4 MG/ML SYRINGE IV PRN (15:19)
[2016-12-14] MEDS: LEVOFLOXACIN 500MG-D5W PMX 500 MG in DEXTROSE/WATER 1 100ML.BAG IVPB SCH (20:16)
[2016-12-14] MEDS: HYDROmorphone 1 MG/ML 1 ML SYRINGE IV PRN (22:25)
[2016-12-15] MEDS: metroNIDAZOLE-NS PMX 500 MG in SALINE 1 100ML.BAG IVPB SCH ×3 (07:34→23:10)
[2016-12-15] MEDS: FLUoxetine HCL 10 MG CAP PO SCH ×2 (07:34→20:30)
[2016-12-15 07:43] LABS: Basophils # (A) 0.1 k/uL (0-0.2); Basophils % (A) 1 %; CH 29.7; CHCM 32.8; Eosinophils # (A) 0.1 k/uL (0-0.7); Eosinophils % (A) 1 %; HCT 36.1 % (34.0-46.0); HDW 2.48; HGB 11.8 gm/dL (11.4-16.0); Luc # (Auto) 0.16; Luc % (Auto) 2; Lymphocytes # (A) 1.8 k/uL (1.0-4.8); Lymphocytes % (A) 25 %; MCH 29.8 pg (25.0-35.0); MCHC 32.7 g/dL (31.0-37.0); MCV 91.1 fL (80.0-100.0); Mean Platelet Volume 7.6; Monocytes # (A) 0.4 k/uL (0-1.0); Monocytes % (A) 5 %; Neutrophils # (A) 4.6 k/uL (1.3-7.7); Neutrophils % (A) 66 %; RBC 3.97 m/uL (3.80-5.40); RDW 13.2 % (11.5-15.5)
[2016-12-15 08:02] LABS: ALT 25 U/L (9-52); AST 16 U/L (14-36); Alkaline Phosphatase 46 U/L (38-126); Anion Gap 9 mmol/L; Blood Urea Nitrogen 10 mg/dL (7-17); Calcium 9.3 mg/dL (8.4-10.2); Carbon Dioxide 26 mmol/L (22-30); Chloride 105 mmol/L (98-107); Glucose 89 mg/dL (74-99); Non-African American GFR(MDRD) >60 (>60 ml/min/1.73 sqM); Potassium 4.2 mmol/L (3.5-5.1); Sodium 140 mmol/L (137-145); Total Bilirubin 0.4 mg/dL (0.2-1.3); Total Protein 6.1 g/dL (6.3-8.2)
[2016-12-15] MEDS ORDERED: RX INFO: IV CONTRAST WAS GIVEN 1 EACH MISC MISCELLANE PRN (10:00)
[2016-12-15] MEDS: HYDROcodone/APAP 7.5-325MG 1 EACH TAB PO PRN ×2 (10:05→20:31)
--- NOTE | 2016-12-15 11:21 | P.PN ---
Subjective Acute diverticulitis with microperforation of the mid sigmoid colon, failed outpatient treatment Patient is a 36-year-old female admitted to [facility] with severe abdominal pain Patient was evaluated as outpatient and diagnosed with acute diverticulitis she was given oral Levaquin and oral Flagyl Her condition continued to worsen and she decided to come to emergency room she had a computed tomography scan of the abdomen and pelvis that revealed evidence of acute diverticulitis with microperforation of the mid sigmoid colon she was started on IV Flagyl and IV Levaquin and was admitted to surgical floor surgical consultation was requested. 12/14/2016patient was evaluated by surgical service. No surgical intervention at this time. Patient is tolerating a diet. Case discussed with surgery they' re planning to advance diet to soft. Patient's pain is showing improvement. Still having some right lower quadrant pain at times. Denies any chest pain or shortness breath. Denies any nausea or vomiting. Patient did have soft brown stool no blood. Denies any difficulty urinating. 12/15/2016 patient complaining of sharp abdominal pains last night in which she required further IV pain medication. She has been having low-grade temps of 100 last night. She's also having some nausea. Denies any chest pain or shortness of breath. Denies any difficulty urinating. She did have a soft stool yesterday. No blood present. Objective - Vital Signs Vital signs: Vital Signs Temp 97.9 F 12/15/16 07:00 Pulse 62 12/15/16 07:00 Resp 18 12/15/16 07:00 BP 101/55 12/15/16 07:00 Pulse Ox 100 12/15/16 07:00 Intake & Output 12/14/16 12/15/16 12/15/16 18:59 06:59 18:59 Intake Total 850 Balance 850 Intake: IV 500 Sodium Chloride 0.9% 1, 500 000 ml @ 100 mls/hr IV . Q10H [facility] Rx#:[id number] Oral 350 Other: Voiding Method Toilet Toilet # Voids 1 1 # Bowel Movements 1 - Exam Head normocephalic Neck supple Lungs clear to auscultation bilaterally no wheezing or crackles Heart regular rate and rhythm S1-S2, no rub or gallop Abdomen is soft nondistended positive bowel sounds right lower quadrant tenderness Extremities no edema Neuro alert and orientated to 3 - Labs CBC & Chem 7: 12/15/16 07:10 12/15/16 07:10 Labs: Abnormal Lab Results - Last 24 Hours (Table) 12/15/16 Range/Units 07:10 Total Protein 6.1 L (6.3-8.2) g/dL Assessment and Plan Plan: #1 acute diverticulitis, failed outpatient treatment with oral antibiotics #2 microperforation of the mid sigmoid colon. Evaluated by surgical service. No plan for surgical intervention at this time. continue antibiotics. Due to increased pain and low-grade temps. We will repeat a computed tomography scan of the abdomen and pelvis with contrast #3 underlying history of depression would resume Prozac
[2016-12-15] MEDS: IOHEXOL 350 MG/ML 25 ML BOTTLE (ORAL USE) PO PRN ×2 (12:34→13:42)
[2016-12-15] MEDS: IBUPROFEN 400 MG TAB PO PRN ×2 (12:34→22:47)
--- NOTE | 2016-12-15 13:42 | P.PN ---
Subjective Principal diagnosis: Diverticulitis The patient feels slightly better. She is scheduled for a computed tomography scan of the abdomen before she goes home. She states she has some mild left lower quadrant pain. Objective - Vital Signs Vital signs: Vital Signs Temp 97.9 F 12/15/16 07:00 Pulse 62 12/15/16 08:00 Resp 18 12/15/16 08:00 BP 101/55 12/15/16 07:00 Pulse Ox 100 12/15/16 07:00 Intake & Output 12/14/16 12/15/16 12/15/16 18:59 06:59 18:59 Intake Total 850 Balance 850 Intake: IV 500 Sodium Chloride 0.9% 1, 500 000 ml @ 100 mls/hr IV . Q10H [facility] Rx#:[id number] Oral 350 Other: Voiding Method Toilet Toilet Toilet # Voids 1 1 # Bowel Movements 1 - Constitutional General appearance: Present: cooperative - Gastrointestinal Gastrointestinal Comment(s): Abdomen soft. There is some minimal left lower quadrant pain. There is no rebound or guarding. - Labs CBC & Chem 7: 12/15/16 07:10 12/15/16 07:10 Labs: Abnormal Lab Results - Last 24 Hours (Table) 12/15/16 Range/Units 07:10 Total Protein 6.1 L (6.3-8.2) g/dL Assessment and Plan Plan: Diverticulosis. Patient may be discharged home today if her computed tomography scan has improved. She'll follow-up the office next week.
--- NOTE | 2016-12-15 14:58 | CT ---
EXAMINATION TYPE: CT abdomen pelvis w con DATE OF EXAM: 12/15/2016 2:43 PM COMPARISON: Prior CT abdomen pelvis 11 December 2016 HISTORY: Pain, history of diverticulitis CT DLP: 1452.4 mGycm Automated exposure control for dose reduction was used. TECHNIQUE: Helical acquisition of images was performed from the lung bases through the pelvis. CONTRAST: Performed with Oral Contrast and with IV Contrast, patient injected with 100 mL of Omnipaque 300. FINDINGS: LUNG BASES: No significant abnormality is appreciated. LIVER/GB: Patient is post cholecystectomy. Liver shows a stable appearance. PANCREAS: No significant abnormality is seen. SPLEEN: No significant abnormality is seen. ADRENALS: No significant abnormality is seen. KIDNEYS: No significant abnormality is seen. RETROPERITONEAL ADENOPATHY: None visualized REPRODUCTIVE ORGANS: No significant abnormality is seen, exam is stable URINARY BLADDER: No significant abnormality is seen. PELVIC ADENOPATHY: None visualized. OSSEOUS STRUCTURES: No significant abnormality is seen. BOWEL: There is colonic wall thickening in the sigmoid colon, diverticular change is present. No andrew dent abscess. OTHER: Aorta shows normal caliber. There is a retroaortic left renal vein. IMPRESSION: FINDINGS MAY REPRESENT DIVERTICULITIS, INDETERMINATE COLONIC WALL THICKENING, CONSIDER FOLLOW-UP TO E XCLUDE A MUCOSAL LESION. THERE IS DIVERTICULOSIS. POSTOP CHANGES.
[2016-12-15] MEDS: HYDROmorphone 1 MG/ML 1 ML SYRINGE IV PRN ×2 (15:18→22:42)
[2016-12-15] MEDS: SODIUM CHLORIDE 0.9% 1,000 ML IV SCH (15:30)
[2016-12-15] MEDS: LEVOFLOXACIN 500MG-D5W PMX 500 MG in DEXTROSE/WATER 1 100ML.BAG IVPB SCH (18:32)
[2016-12-15] MEDS: ONDANSETRON 4 MG/2 ML VIAL IVP PRN (18:41)
[2016-12-16 07:43] LABS: Basophils % (A) 1 %; CH 29.5; CHCM 32.5; Eosinophils # (A) 0.1 k/uL (0-0.7); Eosinophils % (A) 2 %; HDW 2.48; HGB 12.2 gm/dL (11.4-16.0); Luc # (Auto) 0.14; Luc % (Auto) 3; Lymphocytes # (A) 1.9 k/uL (1.0-4.8); Lymphocytes % (A) 34 %; MCH 29.3 pg (25.0-35.0); MCHC 32.2 g/dL (31.0-37.0); Mean Platelet Volume 7.7; Monocytes # (A) 0.3 k/uL (0-1.0); Monocytes % (A) 6 %; Neutrophils # (A) 3.2 k/uL (1.3-7.7); Neutrophils % (A) 56 %; RBC 4.17 m/uL (3.80-5.40); WBC 5.7 k/uL (3.8-10.6); WBC (Perox) 6.27
[2016-12-16] MEDS: metroNIDAZOLE-NS PMX 500 MG in SALINE 1 100ML.BAG IVPB SCH (07:52)
[2016-12-16] MEDS: FLUCONAZOLE 100 MG TAB PO SCH (07:54)
[2016-12-16] MEDS: FLUoxetine HCL 10 MG CAP PO SCH ×2 (07:54→20:11)
[2016-12-16] MEDS: IBUPROFEN 400 MG TAB PO PRN ×2 (08:04→22:24)
[2016-12-16 08:05] LABS: ALT 27 U/L (9-52); AST 20 U/L (14-36); Alkaline Phosphatase 46 U/L (38-126); Anion Gap 9 mmol/L; Blood Urea Nitrogen 9 mg/dL (7-17); Carbon Dioxide 28 mmol/L (22-30); Chloride 103 mmol/L (98-107); Glucose 86 mg/dL (74-99); Non-African American GFR(MDRD) >60 (>60 ml/min/1.73 sqM); Potassium 4.2 mmol/L (3.5-5.1); Sodium 140 mmol/L (137-145); Total Bilirubin 0.4 mg/dL (0.2-1.3); Total Protein 5.9 g/dL (6.3-8.2)
[2016-12-16] MEDS: HYDROcodone/APAP 7.5-325MG 1 EACH TAB PO PRN ×3 (09:54→22:24)
--- NOTE | 2016-12-16 11:26 | P.PN ---
Subjective Principal diagnosis: Diverticulitis with microperforation The patient is improved from admission. She is beginning to eat. Still having some discomfort after eating but that's controlled with oral pain medication. Objective - Vital Signs Vital signs: Vital Signs Temp 98.7 F 12/16/16 07:00 Pulse 85 12/16/16 07:00 Resp 18 12/16/16 07:00 BP 116/79 12/16/16 07:00 Pulse Ox 96 12/16/16 07:00 Intake & Output 12/15/16 12/16/16 12/16/16 18:59 06:59 18:59 Intake Total 480 Balance 480 Intake: IV 100 metroNIDAZOLE-NS PMX 500 100 mg In Saline 1 100ml.bag @ 100 mls/hr IVPB Q8HR [facility] Rx#:[id number] Intake, IV Titration 140 Amount Sodium Chloride 0.9% 1, 140 000 ml @ 20 mls/hr IV . Q24H [facility] Rx#:[id number] Oral 240 Other: Voiding Method Toilet Toilet # Voids 1 1 - Constitutional General appearance: Present: cooperative, no acute distress - Gastrointestinal General gastrointestinal: Present: normal bowel sounds, soft - Labs CBC & Chem 7: 12/16/16 06:44 12/16/16 06:44 Labs: Abnormal Lab Results - Last 24 Hours (Table) 12/16/16 Range/Units 06:44 Total Protein 5.9 L (6.3-8.2) g/dL Albumin 3.4 L (3.5-5.0) g/dL Assessment and Plan (1) Acute diverticulitis Status: Acute Plan: Progressing well from a surgical standpoint. Her CT has improved. She would be surgically stable for discharge on a low residue diet. I explained that the crampy discomfort after eating would be normal for another week or so. She can follow-up with Dr. Smith as outpatient.
--- NOTE | 2016-12-16 12:12 | P.PN ---
Subjective Patient is doing better today. She continues to have intermittent cramping. She is currently getting liquid diets. Objective - Vital Signs Vital signs: Vital Signs Temp 98.7 F 12/16/16 07:00 Pulse 85 12/16/16 07:00 Resp 18 12/16/16 07:00 BP 116/79 12/16/16 07:00 Pulse Ox 96 12/16/16 07:00 Intake & Output 12/15/16 12/16/16 12/16/16 18:59 06:59 18:59 Intake Total 480 Balance 480 Intake: IV 100 metroNIDAZOLE-NS PMX 500 100 mg In Saline 1 100ml.bag @ 100 mls/hr IVPB Q8HR [facility] Rx#:[id number] Intake, IV Titration 140 Amount Sodium Chloride 0.9% 1, 140 000 ml @ 20 mls/hr IV . Q24H [facility] Rx#:[id number] Oral 240 Other: Voiding Method Toilet Toilet # Voids 1 1 - Exam General: The patient is awake and alert, in no distress Eye: there is normal conjunctiva bilaterally. Neck: The neck is supple, there is no JVD. Cardiovascular: Normal S1-S2, no S3-S4, no murmurs. Respiratory: Lungs clear to auscultation bilaterally Gastrointestinal: Abdomen is soft, nontender Musculoskeletal: There is no pedal edema. Neurological:. Speech is normal. Skin: Skin is warm and dry - Labs CBC & Chem 7: 12/16/16 06:44 12/16/16 06:44 Labs: Abnormal Lab Results - Last 24 Hours (Table) 12/16/16 Range/Units 06:44 Total Protein 5.9 L (6.3-8.2) g/dL Albumin 3.4 L (3.5-5.0) g/dL Assessment and Plan Plan: #1 acute diverticulitis, failed outpatient treatment with oral antibiotics #2 microperforation of the mid sigmoid colon. Evaluated by surgical service. No plan for surgical intervention at this time. continue antibiotics. Repeat CT showing improvement. #3 underlying history of depression would resume Prozac Advance diet to regular with low residues. Continue IV antibiotic. Plan to discharge home tomorrow.
[2016-12-16] MEDS: SODIUM CHLORIDE 0.9% 1,000 ML IV SCH (12:19)
[2016-12-16] MEDS ORDERED: LEVOFLOXACIN 500 MG TAB PO SCH (18:00)
[2016-12-16] MEDS: metroNIDAZOLE 500 MG TAB PO SCH ×2 (18:11→23:24)
[2016-12-16] MEDS: ONDANSETRON 4 MG/2 ML VIAL IVP PRN (18:39)
[2016-12-16 21:54] VITALS: BP 126/71; PULSE 78; RESP 16; TEMP 98.3
[2016-12-17 08:26] LABS: Anion Gap 10 mmol/L; Blood Urea Nitrogen 10 mg/dL (7-17); Carbon Dioxide 25 mmol/L (22-30); Chloride 105 mmol/L (98-107); Glucose 91 mg/dL (74-99); Potassium 4.7 mmol/L (3.5-5.1); Sodium 140 mmol/L (137-145)
[2016-12-17 08:27] LABS: ALT 33 U/L (9-52); AST 28 U/L (14-36); Alkaline Phosphatase 51 U/L (38-126); Calcium 9.1 mg/dL (8.4-10.2); Non-African American GFR(MDRD) >60 (>60 ml/min/1.73 sqM); Total Bilirubin 0.3 mg/dL (0.2-1.3); Total Protein 5.9 g/dL (6.3-8.2)
[2016-12-17] MEDS: FLUCONAZOLE 100 MG TAB PO SCH (08:41)
[2016-12-17] MEDS: FLUoxetine HCL 10 MG CAP PO SCH (08:41)
[2016-12-17] MEDS: metroNIDAZOLE 500 MG TAB PO SCH (08:42)
[2016-12-17 09:02] LABS: Basophils # (A) 0.1 k/uL (0-0.2); Basophils % (A) 1 %; CH 29.5; CHCM 32.4; Eosinophils # (A) 0.1 k/uL (0-0.7); Eosinophils % (A) 2 %; HCT 40.9 % (34.0-46.0); HDW 2.47; HGB 12.8 gm/dL (11.4-16.0); Luc # (Auto) 0.16; Luc % (Auto) 2; Lymphocytes # (A) 1.9 k/uL (1.0-4.8); Lymphocytes % (A) 29 %; MCH 28.5 pg (25.0-35.0); MCHC 31.2 g/dL (31.0-37.0); MCV 91.5 fL (80.0-100.0); Mean Platelet Volume 7.7; Monocytes # (A) 0.4 k/uL (0-1.0); Monocytes % (A) 6 %; Neutrophils % (A) 60 %; RBC 4.47 m/uL (3.80-5.40); RDW 13.2 % (11.5-15.5); WBC 6.6 k/uL (3.8-10.6)
[2016-12-17] MEDS: ONDANSETRON 4 MG/2 ML VIAL IVP PRN (12:00)
--- NOTE | 2016-12-17 13:00 | P.DS ---
Providers Date of admission: 12/11/16 18:33 Expected date of discharge: 12/17/16 Attending physician: Marcia Canales Primary care physician: Marcia Canales [facility] Course: 36-year-old female who presented with abdominal pain and acute diverticulitis that failed outpatient management with oral antibiotic. Patient was admitted to the hospital and was managed with IV fluid hydration, antiemetic, and pain control. She was seen and evaluated by general surgery. Her overall condition improved significantly throughout her hospital stay. She will be discharged home in a stable condition. On the day of discharge patient was up ambulating in the hallway. She was able to tolerate regular diet. She is having normal bowel movement. Nose list of her medical problems addressed during this hospitalization. #1 acute diverticulitis, failed outpatient treatment with oral antibiotics #2 microperforation of the mid sigmoid colon. Evaluated by surgical service. No plan for surgical intervention at this time. continue antibiotics. Repeat CT showing improvement. #3 underlying history of depression would resume Prozac Patient Condition at Discharge: Good Plan - Discharge Summary New Discharge Prescriptions: Levofloxacin [Levaquin] 500 mg PO 1800 #7 tab Ondansetron HCl [Zofran] 4 mg PO Q8HR #20 tablet metroNIDAZOLE [Flagyl] 500 mg PO Q8HR #21 tab Discharge Medication List FLUoxetine HCL [PROzac] 10 mg PO BID 12/11/16 [History] HYDROcodone/APAP 7.5-325MG [[place] 7.5-325] 1 tab PO Q6H PRN 12/11/16 [History] Levofloxacin [Levaquin] 500 mg PO 1800 #7 tab 12/17/16 [Rx] Ondansetron HCl [Zofran] 4 mg PO Q8HR #20 tablet 12/17/16 [Rx] metroNIDAZOLE [Flagyl] 500 mg PO Q8HR #21 tab 12/17/16 [Rx] Follow up Appointment(s)/Referral(s): Marcia Canales MD [Primary Care Provider] - 1-2 days Juanito Smith MD [STAFF PHYSICIAN] - 1 Week Patient Instructions/Handouts: Diverticulitis (DC), Diverticulitis Diet (DC) Activity/Diet/Wound Care/Special Instructions: No heavy lifting, pushing, or pulling items greater than 10 pounds. Soft diet. No driving while taking pain medication. Notify surgeon with any signs or symptoms of infection, increased pain, or not tolerating diet. Discharge Disposition: HOME SELF-CARE
[2016-12-17] MEDS: SODIUM CHLORIDE 0.9% 1,000 ML IV SCH (13:47)
== END 2016-12-17 13:50 | disposition home or self-care (01) | DRG 392 ==
LOC: EC 14:52 → 5MS5E 18:33
PROVIDERS: ADMIT Internal Medicine; ATTEND Internal Medicine
DX: K57.20 Diverticulitis of large intestine with perforation and abscess without bleeding (principal); F32.9 Major depressive disorder, single episode, unspecified; Z79.899 Other long term (current) drug therapy; B37.3 Candidiasis of vulva and vagina
CPT/HCPCS: 36415; 74000; 74177; 80048; 80053; 81001; 81025; 82150; 83690; 85025; 87086; 96361; 96365; 96375; 99285

== ENCOUNTER → 2017-01-08 | Outpatient (CLI) | payer OTHER ==
--- NOTE | 2017-01-08 09:39 | CT ---
EXAMINATION TYPE: CT abdomen pelvis w con DATE OF EXAM: 01/08/2017 8:59 AM COMPARISON: 12/15/2016 INDICATION: Patient having medial right lower quadrant pain DLP: 1594 mGycm, Automated exposure control for dose reduction was used. CONTRAST: 100 mL of Omnipaque 300. Study performed with Oral Contrast TECHNIQUE: Axial images were obtained from above the diaphragm to the pubic rami in the axial plane a t 5 mm thick sections. Reconstructed images are reviewed on the computer in the coronal plane. FINDINGS: Limited CT sections are obtained the lung bases. The lung bases are clear. CT ABDOMEN: Liver: Normal Spleen: Normal Pancreas: Normal Adrenal glands: The adrenal glands are normal. Gallbladder: Surgically absent Kidneys: No masses are evident. No hydronephrosis is present. No cysts are present. Delayed images were obtained through the kidneys, which remain unremarkable. Aorta: Normal Inferior vena cava: Normal. CT PELVIS: Loops of bowel within the abdomen and pelvis are normal. There are loops of bowel which are incom pletely distended or lack oral contrast limiting their evaluation. There is a large fecal bolus at th e level the rectum. The thickening in the mid sigmoid colon is not as apparent on the current study a nd may be resolving diverticulitis. There are scattered diverticuli present without adjacent inflamma tory changes at this time. Appendix: Normal as visualized. Urinary bladder: Normal. Genitourinary structures: There is a 1.7 cm left ovarian cyst. There is some hypodensity within the e ndometrial canal. Consider ultrasound for additional evaluation of the endometrial stripe. No free fl uid is within the pelvis. Osseous structures: No suspicious lytic or sclerotic lesions. IMPRESSIONS: 1. Left ovarian cyst. 2. May be some thickening of the endometrial canal. Ultrasound of the pelvis recommended for addition al evaluation. 3. Findings appear to be interval changes from 12/15/2016. 4. Previous suspected mild diverticulitis appears to be resolving within the mid sigmoid colon on the current exam.
== END | disposition home or self-care (01) ==
LOC: RADCTMAIN 06:58
PROVIDERS: ATTEND Internal Medicine
DX: N83.202 Unspecified ovarian cyst, left side (principal)
CPT/HCPCS: 74177; Q9967

== ENCOUNTER 2017-01-31 10:21 | Day surgery (SDC) | payer OTHER ==
[2017-01-30 13:04] VITALS: BMI 33.6
[~2017-01-31 10:21] MED LIST: LACTATED RINGERS 1,000 ML IV SCH; LIDOCAINE 1% 20 ML VIAL (10MG/ML) FOR IV START INTRADERMA PRN
[2017-01-31 11:49] VITALS: TEMP 98.6
[2017-01-31] MEDS ORDERED: LIDOCAINE 1% 20 ML VIAL (10MG/ML) FOR IV START INTRADERMA ONE (12:00)
[2017-01-31] MEDS ORDERED: PROPOFOL 10 MG/ML 20 ML VIAL IV ONE (12:06)
--- NOTE | 2017-01-31 12:10 | P.GSHP ---
History of Present Illness H&P Date: 01/31/17 Chief Complaint: Diverticulitis,the left lower quadrant abdominal pain This is a 36-year-old female referred from Dr. otero. Patient presents today for colonoscopy. She's had issues with diverticulitis the past. She has complaints of left lower quadrant pain. - Constitutional Constitutional: Reports as per HPI Past Medical History Past Medical History: Fibromyalgia Additional Past Medical History / Comment(s): rib fx, palpitations, previous hx. acute diverticulitis, right sided abd. pain, pain w/eating, tx. in November w/ antibiotics History of Any Multi-Drug Resistant Organisms: None Reported Past Surgical History: Section, Cholecystectomy Past Anesthesia/Blood Transfusion Reactions: No Reported Reaction Past Psychological History: No Psychological Hx Reported Smoking Status: Never smoker Past Alcohol Use History: Rare Past Drug Use History: None Reported - Past Family History Father Family Medical History: Unable to Obtain Mother Family Medical History: Unable to Obtain Medications and Allergies Home Medications Medication Instructions Recorded Confirmed Type FLUoxetine HCL [PROzac] 10 mg PO BID 12/11/16 01/31/17 History Ondansetron HCl [Zofran] 4 mg PO Q8HR PRN 01/30/17 01/31/17 History traMADol HCL [Ultram] 50 mg PO Q6HR PRN 01/30/17 01/31/17 History Allergies Allergy/AdvReac Type Severity Reaction Status Date / Time diclofenac sodium Allergy Unknown Verified 01/31/17 12:05 [From Arthrotec] misoprostol [From Arthrotec] Allergy Unknown Verified 01/31/17 12:05 pomegranate Allergy tongue numb Verified 01/31/17 12:05 Surgical - Exam Vital Signs Temp Pulse Resp BP Pulse Ox 98.6 F 82 16 125/84 99 01/31/17 11:47 01/31/17 11:47 01/31/17 11:47 01/31/17 11:47 01/31/17 11:47 - General well developed, no distress - Eyes PERRL - ENT normal pinna - Neck no masses - Respiratory normal expansion - Cardiovascular Rhythm: regular - Abdomen Abdomen: soft, non tender Assessment and Plan Plan: Left lower quadrant pain, diverticulitis. We'll perform colonoscopy.
--- NOTE | 2017-01-31 12:24 | P.OP ---
Date of Procedure: 01/31/17 Preoperative Diagnosis: Diverticulitis Postoperative Diagnosis: Diverticulitis Procedure(s) Performed: Colonoscopy Anesthesia: MAC Surgeon: Juanito Smith Pathology: none sent Condition: stable Disposition: PACU Description of Procedure: He was placed on the endoscopy table in the lateral position. She received IV sedation. Digital rectal exam was performed which revealed no abnormalities. The flexible colonoscope was then placed patient anus and passed into the rectum and then into the sigmoid colon. The sigmoid colon appeared to be quite scarred and tortuous. The scope could not be advanced. At this point the scope was withdrawn and the pediatric colonoscope was placed patient anus and passed through the colon. Once again the scope could not be passed beyond the sigmoid colon secondary to tortuosity of the bowel and the inability of the scope to around the turned to the sigmoid colon. Several times made to maneuver the scope over this is impossible. This point the scope was withdrawn. Diverticuli were seen and sigmoid colon. Scope back the rectum this appeared normal. Scope was withdrawn for patient.
[2017-01-31] MEDS ORDERED: HYDROmorphone 1 MG/ML 1 ML SYRINGE IVP ONE (13:07)
[2017-01-31 13:09] VITALS: BP 116/64; PULSE 76; RESP 16
== END 2017-01-31 14:40 | disposition home or self-care (01) ==
LOC: ORWHC2ENDO 10:21
PROVIDERS: ATTEND Surgery
DX: K57.30 Diverticulosis of large intestine without perforation or abscess without bleeding (principal); Q43.8 Other specified congenital malformations of intestine; R00.2 Palpitations; M79.7 Fibromyalgia; Z79.899 Other long term (current) drug therapy; Z88.6 Allergy status to analgesic agent; Z91.018 Allergy to other foods
CPT/HCPCS: 81025; 45330; J1170; J2704; 45378

== ENCOUNTER → 2017-01-31 | Outpatient (CLI) | payer OTHER ==
[2017-01-31 10:43] LABS: Potassium 4.4 mmol/L (3.5-5.1)
[2017-01-31 11:20] LABS: Basophils # (A) 0.1 k/uL (0-0.2); Basophils % (A) 1 %; CH 29.9; CHCM 33.7; Eosinophils # (A) 0.1 k/uL (0-0.7); Eosinophils % (A) 1 %; HCT 44.2 % (34.0-46.0); HDW 2.42; HGB 14.7 gm/dL (11.4-16.0); Luc # (Auto) 0.09; Luc % (Auto) 1; Lymphocytes # (A) 1.5 k/uL (1.0-4.8); Lymphocytes % (A) 18 %; MCH 29.6 pg (25.0-35.0); MCHC 33.3 g/dL (31.0-37.0); MCV 89.1 fL (80.0-100.0); Mean Platelet Volume 7.9; Monocytes # (A) 0.4 k/uL (0-1.0); Monocytes % (A) 5 %; Neutrophils # (A) 6.3 k/uL (1.3-7.7); Neutrophils % (A) 75 %; RBC 4.97 m/uL (3.80-5.40); RDW 13.6 % (11.5-15.5); WBC 8.5 k/uL (3.8-10.6); WBC (Perox) 8.16
== END | disposition home or self-care (01) ==
LOC: LABPAT 09:53
PROVIDERS: ATTEND Surgery
DX: Z01.818 Encounter for other preprocedural examination (principal)
CPT/HCPCS: 80051; 85025

== ENCOUNTER 2017-02-01 07:40 | Inpatient (IN) | payer OTHER ==
[2017-01-30 16:07] VITALS: BMI 33.6
[~2017-02-01 07:40] MED LIST changes: +HEPARIN SODIUM,PORCINE 5,000 UNIT/ML 1 ML VIAL SQ ONE; +HYDROmorphone 1 MG/ML 1 ML SYRINGE IVP PRN; -LACTATED RINGERS 1,000 ML IV SCH; +SCOPOLAMINE 1.5MG/72HR PATCH TRANSDERM ONE; +ceFAZolin 2 GM in SODIUM CHLORIDE 0.9% 100 ML IVPB ONE; +metroNIDAZOLE-NS PMX 500 MG in SALINE 1 100ML.BAG IVPB ONE
[2017-02-01] MEDS: LACTATED RINGERS 1,000 ML IV SCH (08:41)
[2017-02-01] MEDS: DEXAMETHASONE SOD PHOSPHATE 10 MG/ML 1 ML VIAL IV ONE ×2 (08:44→13:39)
[2017-02-01] MEDS: ONDANSETRON 4 MG/2 ML VIAL IVP ONE ×2 (08:44→13:39)
[2017-02-01] MEDS: MIDAZOLAM 2 MG/2 ML VIAL IV PRN ×3 (09:00→12:50)
[2017-02-01] MEDS ORDERED: BUPIVACAINE (PF) 0.5% 31.3 ML, HYDROmorphone 5 MG in SODIUM CHLORIDE 0.9% 216 ML EPIDURAL PRN (10:35)
[2017-02-01] MEDS ORDERED: NALOXONE 0.4 MG/ML 1 ML VIAL IV PRN ×2 (10:35→20:50)
--- NOTE | 2017-02-01 10:35 | P.GSHP ---
History of Present Illness H&P Date: 02/01/17 Chief Complaint: Left lower quadrant pain, diverticulitis This is a 36-year-old female who presents today for low anterior resection. She 's had chronic history of diverticulitis and left lower quadrant abdominal pain. Patient is aware the risks of surgery including bleeding, infection and colostomy. - Constitutional Constitutional: Reports as per HPI Past Medical History Additional Past Medical History / Comment(s): rib fx, palpitations, previous hx. acute diverticulitis, right sided abd. pain, pain w/eating, tx. in November w/ antibiotics History of Any Multi-Drug Resistant Organisms: None Reported Past Surgical History: Section, Cholecystectomy Past Anesthesia/Blood Transfusion Reactions: No Reported Reaction Past Psychological History: No Psychological Hx Reported Smoking Status: Never smoker Past Alcohol Use History: Rare Past Drug Use History: None Reported - Past Family History Father Family Medical History: Unable to Obtain Mother Family Medical History: Unable to Obtain Medications and Allergies Home Medications Medication Instructions Recorded Confirmed Type FLUoxetine HCL [PROzac] 10 mg PO BID 12/11/16 01/31/17 History Ondansetron HCl [Zofran] 4 mg PO Q8HR PRN 01/30/17 01/31/17 History traMADol HCL [Ultram] 50 mg PO Q6HR PRN 01/30/17 01/31/17 History Antibiotic(Unknow Name) 1 tab PO DIRECTED 02/01/17 History Allergies Allergy/AdvReac Type Severity Reaction Status Date / Time diclofenac sodium Allergy Unknown Verified 01/31/17 12:05 [From Arthrotec] misoprostol [From Arthrotec] Allergy Unknown Verified 01/31/17 12:05 pomegranate Allergy tongue numb Verified 01/31/17 12:05 Surgical - Exam Vital Signs Temp Pulse Resp BP Pulse Ox 98.4 F 94 16 125/75 97 02/01/17 08:36 02/01/17 08:36 02/01/17 08:36 02/01/17 08:36 02/01/17 08:36 - General well developed, no distress - Eyes PERRL - ENT normal pinna - Neck no masses - Respiratory normal expansion - Cardiovascular Rhythm: regular - Abdomen Tender left lower quadrant Abdomen: soft Assessment and Plan Plan: History of diverticulitis. We'll perform a low anterior resection.
[2017-02-01] MEDS ORDERED: GLYCOPYRROLATE 0.2 MG/ML 2 ML VIAL ONE (10:56)
[2017-02-01] MEDS ORDERED: SUCCINYLCHOLINE CHLORIDE 100 MG/5 ML SYR IV ONE (10:56)
[2017-02-01] MEDS ORDERED: fentaNYL (PF) 50 MCG/ML 2 ML AMP ONE (10:56)
[2017-02-01] MEDS ORDERED: NEOSTIGMINE 1 MG/ML 10 ML VIAL ONE (10:56)
[2017-02-01] MEDS ORDERED: PROPOFOL 10 MG/ML 20 ML VIAL IV ONE (10:56)
[2017-02-01] MEDS ORDERED: LIDOCAINE 1% INJ 10MG/ML (20 ML MDV) ONE (10:56)
[2017-02-01] MEDS ORDERED: MIDAZOLAM 2 MG/2 ML VIAL ONE (10:56)
[2017-02-01] MEDS ORDERED: ROCURONIUM BROMIDE 10 MG/ML 10 ML VIAL IV ONE (10:56)
[2017-02-01] MEDS ORDERED: HYDROmorphone (PF) 1 MG/ML ONE (10:56)
[2017-02-01] MEDS ORDERED: LACTATED RINGERS 1,000 ML IV ONE (11:35)
[2017-02-01] MEDS ORDERED: BENZOCAINE/MENTHOL LOZENG 1 EACH LOZENGE MUCOUS MEM PRN (12:29)
[2017-02-01] MEDS ORDERED: KETOROLAC 30 MG/ML 1 ML VIAL IVP ONE (12:43)
--- NOTE | 2017-02-01 12:46 | P.OP ---
Date of Procedure: 02/01/17 Preoperative Diagnosis: Low anterior resection Postoperative Diagnosis: Diverticulitis Procedure(s) Performed: Diverticulitis Anesthesia: SHADE Surgeon: Juanito Smiht Estimated Blood Loss (ml): 20 Pathology: other (Sigmoid colon) Condition: stable Disposition: PACU Description of Procedure: The patient's placed on the operating room table in the supine position. She received general anesthesia. She was then placed in dorsal 5 position. Her abdomen was prepped and draped usual sterile fashion. The abdomen was entered through a low midline incision. The Bookwalter retractors placed a wound. The sigmoid colon was visualized and the sigmoid colon was followed down into the pelvis and there appeared to be a area of chronic diverticulitis. The bowel was inflamed and thickened. At this point the proximal rectum was excised examined. A suitable spot on the proximal rectum was found and this was divided with the HELEN stapler. Next the GI stapler divided the proximal sigmoid colon and then using the LigaSure device the mesentery the bowel was divided. Next the pursestring device was placed across the proximal bowel and fired. The colon was then opened and then the anvil for the 25 mm EEA stapler was placed in the colon and then the pursestring was secured. The anus was then dilated. The 25 mm EEA stapler was placed the patient's anus and then the stapler was position in the proximal rectum. The spike was driven through the anterior rectal wall. The anvil was connected to the stapler stapler was then closed and fired. The the anastomosis was then checked under air insufflation. The rigid sigmoidoscope was placed patient anus and then the HIDA grippers placed across the proximal colon and then the colon was insufflated with air. There is no evidence of any air extravasation from the staple anastomosis. At this point the abdomen was irrigated. The fascia was then closed with looped # 1 PDS suture. Skin was closed mary. Patient top she will was sent to recovery in stable condition.
[2017-02-01] MEDS: D5-0.45% NACL WITH KCL 20MEQ/L 1,000 ML IV SCH ×2 (13:58→21:40)
--- NOTE | 2017-02-01 14:06 | P.CONS ---
History of Present Illness - Reason for Consult Consult date: 02/01/17 Medical management Requesting physician: Juanito Smtih - Chief Complaint Lower anterior resection - History of Present Illness This is a 36-year-old female with a known history of diverticulitis and depression. Patient underwent lower anterior resection today with Dr. Dorantes and regards to her diverticulitis. She tolerated surgery well. Estimated blood loss 20 mL. Pain is currently tolerable. She denies any chest pain or shortness of breath. Denies any nausea or vomiting. She had been having regular bowel movements prior to surgery. And had no difficulty urinating. We been consulted for medical management. Review of Systems Please refer to HPI otherwise unremarkable Past Medical History Additional Past Medical History / Comment(s): rib fx, palpitations, previous hx. acute diverticulitis, right sided abd. pain, pain w/eating, tx. in November w/ antibiotics History of Any Multi-Drug Resistant Organisms: None Reported Past Surgical History: Section, Cholecystectomy Past Anesthesia/Blood Transfusion Reactions: No Reported Reaction Past Psychological History: No Psychological Hx Reported Smoking Status: Never smoker Past Alcohol Use History: Rare Past Drug Use History: None Reported - Past Family History Father Family Medical History: Unable to Obtain Mother Family Medical History: Unable to Obtain Medications and Allergies Home Medications Medication Instructions Recorded Confirmed Type FLUoxetine HCL [PROzac] 10 mg PO BID 12/11/16 02/01/17 History Ondansetron HCl [Zofran] 4 mg PO Q8HR PRN 01/30/17 02/01/17 History traMADol HCL [Ultram] 50 mg PO Q6HR PRN 01/30/17 02/01/17 History Erythromycin Base [Erythromycin] 1,000 mg PO TID 02/01/17 02/01/17 History Allergies Allergy/AdvReac Type Severity Reaction Status Date / Time diclofenac sodium Allergy Unknown Verified 01/31/17 12:05 [From Arthrotec] misoprostol [From Arthrotec] Allergy Unknown Verified 01/31/17 12:05 pomegranate Allergy tongue numb Verified 01/31/17 12:05 Physical Exam Vitals: Vital Signs Temp Pulse Pulse Resp BP Pulse Ox 02/01/17 13:30 92 18 111/58 97 02/01/17 13:15 91 20 111/57 98 02/01/17 13:00 92 18 114/59 99 02/01/17 12:45 89 16 120/64 99 02/01/17 12:29 98.6 F 93 14 116/62 100 02/01/17 08:36 98.4 F 94 16 125/75 97 Intake and Output 01/31/17 02/01/17 02/01/17 22:59 06:59 14:59 Intake Total 2000 Output Total 250 Balance 1750 Intake: IV 1999 Output: Urine 200 Estimated Blood Loss 50 Head normocephalic Neck supple Lungs clear to auscultation bilaterally no wheezing or crackles Heart regular rate and rhythm S1-S2, no rub or gallop Abdomen is soft nondistended positive bowel sounds no hepatosplenomegaly Extremities no edema Neuro alert and orientated to 3 Assessment and Plan Plan: 1. Diverticulitis status post lower anterior resection. Postop day #0. Continue pain control and postop orders per surgical service. Patient currently on a clear liquid diet. 2. Depression continue with her Prozac 3. Chronic back pain. On muscle relaxers and Ultram at home. At this time we' ll continue with current postop IV pain medications. Hold Ultram and muscle relaxer GI prophylaxis Pepcid and DVT prophylaxis subcu heparin Check CBC and CMP and a.m. Thank you for this consultation. We will continue to follow along with you. Time with Patient: Greater than 30 (Greater than 50% of the total time spent in counseling and coordination of care.I performed an examination of the patient and discussed their management with the physician [facility] Medical [facility]. I have reviewed the Physician [facility]'s notes and agree with the documented findings and plan of care)
[2017-02-01] MEDS: HEPARIN SODIUM,PORCINE 5,000 UNIT/ML 1 ML VIAL SQ SCH (15:39)
[2017-02-01] MEDS: KETOROLAC 30 MG/ML 1 ML VIAL IVP PRN (15:46)
[2017-02-01] MEDS: diphenhydrAMINE 50 MG/ML 1 ML VIAL IVP PRN (17:12)
[2017-02-01] MEDS: HYDROmorphone 1 MG/ML 1 ML SYRINGE IVP PRN (19:31)
[2017-02-01] MEDS ORDERED: NALBUPHINE 10 MG/ML AMPUL IV PRN (20:50)
[2017-02-01] MEDS ORDERED: NALBUPHINE 10 MG/ML AMPUL IV ONE (21:00)
[2017-02-01] MEDS: FAMOTIDINE 20 MG/2 ML VIAL IV SCH (21:36)
[2017-02-01] MEDS: FLUoxetine HCL 10 MG CAP PO SCH (21:41)
[2017-02-02] MEDS: KETOROLAC 30 MG/ML 1 ML VIAL IVP PRN ×3 (03:07→16:33)
[2017-02-02] MEDS: HEPARIN SODIUM,PORCINE 5,000 UNIT/ML 1 ML VIAL SQ SCH ×4 (03:08→23:04)
[2017-02-02] MEDS: D5-0.45% NACL WITH KCL 20MEQ/L 1,000 ML IV SCH ×3 (04:30→22:49)
[2017-02-02] MEDS: diphenhydrAMINE 50 MG/ML 1 ML VIAL IVP PRN ×2 (04:30→23:41)
[2017-02-02 08:20] LABS: Basophils % (A) 0 %; CH 29.4; CHCM 32.1; Eosinophils % (A) 0 %; HCT 37.1 % (34.0-46.0); HDW 2.28; HGB 11.8 gm/dL (11.4-16.0); Luc # (Auto) 0.07; Luc % (Auto) 1; Lymphocytes # (A) 0.6 k/uL (1.0-4.8); Lymphocytes % (A) 5 %; MCH 29.3 pg (25.0-35.0); MCHC 31.9 g/dL (31.0-37.0); MCV 91.9 fL (80.0-100.0); Mean Platelet Volume 7.4; Monocytes # (A) 0.4 k/uL (0-1.0); Monocytes % (A) 4 %; Neutrophils # (A) 10.6 k/uL (1.3-7.7); Neutrophils % (A) 90 %; RBC 4.03 m/uL (3.80-5.40); RDW 13.6 % (11.5-15.5); WBC 11.8 k/uL (3.8-10.6); WBC (Perox) 12.54
[2017-02-02] MEDS: FAMOTIDINE 20 MG/2 ML VIAL IV SCH ×2 (09:05→23:04)
[2017-02-02] MEDS: FLUoxetine HCL 10 MG CAP PO SCH ×2 (09:06→21:55)
--- NOTE | 2017-02-02 09:08 | P.PN ---
Progress Note - Text Postoperative day 1 status post low anterior resection under general endotracheal anesthesia, and epidural catheter placed for postoperative analgesia, patient doing well, vital signs stable,VAS 2-3/10 , she is on continuous infusion of bupivacaine/Dilaudid at 10 mL per hour, and patient was complaining of right lower extremity weakness, Ellie was decreased to 8 ml /h , epidural site okay. Assessment and plan= suppurative date 1 , doing well, patient had some weakness in her right lower extremity secondary to local anesthetic in the epidural infusion, I decreased the epidural infusion from 10 mL per hour to 8 mL per hour and may explain to the patient the need to stay on lateral position, left side down, this will help to spread the medication to the left side and this. Patient will have less weakness in her right lower extremity, and will reevaluate tomorrow
[2017-02-02] MEDS: LACTATED RINGERS 1,000 ML IV SCH (09:18)
[2017-02-02 10:02] LABS: ALT 31 U/L (9-52); AST 31 U/L (14-36); Alkaline Phosphatase 58 U/L (38-126); Anion Gap 10 mmol/L; Blood Urea Nitrogen 7 mg/dL (7-17); Carbon Dioxide 24 mmol/L (22-30); Chloride 106 mmol/L (98-107); Glucose 129 mg/dL (74-99); Non-African American GFR(MDRD) >60 (>60 ml/min/1.73 sqM); Potassium 4.6 mmol/L (3.5-5.1); Sodium 140 mmol/L (137-145); Total Bilirubin 0.6 mg/dL (0.2-1.3); Total Protein 6.3 g/dL (6.3-8.2)
[2017-02-02] MEDS: HYDROmorphone 1 MG/ML 1 ML SYRINGE IVP PRN ×2 (11:13→22:48)
--- NOTE | 2017-02-02 14:47 | P.PN ---
Subjective Patient is status post lower anterior resection. Pain controlled. She did have one bloody bowel movement. Denies any chest pain or shortness breath. Denies any nausea or vomiting currently on a clear liquid diet. Sitting up at bedside chair Objective - Vital Signs Vital signs: Vital Signs Temp 97.9 F 02/02/17 13:29 Pulse 72 02/02/17 13:29 Resp 17 02/02/17 13:29 BP 102/68 02/02/17 13:29 Pulse Ox 97 02/02/17 13:29 Intake & Output 02/01/17 02/02/17 02/02/17 18:59 06:59 18:59 Intake Total 2000 1375 1600 Output Total 250 1000 2000 Balance 1750 375 -400 Intake: IV 2000 Intake, IV Titration 1375 Amount D5-0.45% NaCl with KCl 1375 20Meq/l 1,000 ml @ 125 mls/hr IV .Q8H [facility] Rx#: [id number] Oral 1600 Output: Urine 200 1000 2000 Uretheral ([place]) 2000 Estimated Blood Loss 50 Other: Voiding Method Indwelling Catheter Indwelling Catheter Indwelling Catheter # Bowel Movements 1 - Exam Head normocephalic Neck supple Lungs clear to auscultation bilaterally no wheezing or crackles Heart regular rate and rhythm S1-S2, no rub or gallop Abdomen is positive bowel sounds. Incision sites bandage saturated with blood. Extremities no edema Neuro alert and orientated to 3 - Labs CBC & Chem 7: 02/02/17 07:45 02/02/17 07:45 Labs: Abnormal Lab Results - Last 24 Hours (Table) 02/02/17 02/02/17 Range/Units 07:45 07:45 WBC 11.8 H (3.8-10.6) k/uL Neutrophils # 10.6 H (1.3-7.7) k/uL Lymphocytes # 0.6 L (1.0-4.8) k/uL Glucose 129 H (74-99) mg/dL Assessment and Plan Plan: 1. Diverticulitis status post lower anterior resection. Postop day #1. Continue pain control and postop orders per surgical service. Patient currently on a clear liquid diet. Patient did have a large bloody bowel movement. We'll check CBC. 2. Depression continue with her Prozac 3. Chronic back pain. On muscle relaxers and Ultram at home. At this time we' ll continue with current postop IV pain medications. Hold Ultram and muscle relaxer GI prophylaxis Pepcid and DVT prophylaxis subcu heparin
[2017-02-02 15:17] LABS: Basophils % (A) 0 %; CHCM 31.8; Eosinophils % (A) 0 %; HCT 37.7 % (34.0-46.0); HDW 2.29; Luc % (Auto) 1; Lymphocytes # (A) 1.2 k/uL (1.0-4.8); Lymphocytes % (A) 10 %; MCH 29.3 pg (25.0-35.0); MCHC 31.9 g/dL (31.0-37.0); MCV 91.7 fL (80.0-100.0); Mean Platelet Volume 7.3; Monocytes # (A) 0.5 k/uL (0-1.0); Monocytes % (A) 4 %; Neutrophils # (A) 9.3 k/uL (1.3-7.7); Neutrophils % (A) 84 %; RBC 4.11 m/uL (3.80-5.40); RDW 13.6 % (11.5-15.5); WBC 11.1 k/uL (3.8-10.6); WBC (Perox) 11.82
--- NOTE | 2017-02-02 17:28 | P.PN ---
Subjective Principal diagnosis: Diverticulitis. Patient is a 36-year-old female, patient of Dr. Canales in outpatient setting, status post low anterior resection for chronic diverticulitis with left lower quadrant pain. Patient is postop day #1. Upon examination, patient is sitting up in a chair. Patient is complaining of moderate incisional pain currently rated 6 out of 10. Denies chills, fevers, nausea, vomiting, shortness of breath, or chest pain. Patient did have numbness and tingling to her right lower extremity earlier in the day which resolved after epidural rate was decreased by anesthesia. Patient did have two bloody bowel movements today. Hemoglobin stable at 12. Patient asymptomatic. Urine output adequate. T-max last 24 hours 99. Objective - Vital Signs Vital signs: Vital Signs Temp 97.9 F 02/02/17 13:29 Pulse 72 02/02/17 13:29 Resp 17 02/02/17 13:29 BP 102/68 02/02/17 13:29 Pulse Ox 97 02/02/17 13:29 Intake & Output 02/01/17 02/02/17 02/02/17 18:59 06:59 18:59 Intake Total 2000 1375 2600 Output Total 250 1000 2000 Balance 1750 375 600 Intake: IV 2000 Intake, IV Titration 1375 1000 Amount D5-0.45% NaCl with KCl 1375 1000 20Meq/l 1,000 ml @ 125 mls/hr IV .Q8H [facility] Rx#: [id number] Oral 1600 Output: Urine 200 1000 2000 Uretheral ([place]) 2000 Estimated Blood Loss 50 Other: Voiding Method Indwelling Catheter Indwelling Catheter Indwelling Catheter # Bowel Movements 1 - Exam GENERAL: Pt awake and alert, well-appearing, well-nourished, and in no acute distress. HEAD: Atraumatic, normocephalic. LUNGS: Breath sounds clear to auscultation bilaterally. No wheezes, rales, or rhonchi. HEART: Heart S1, S2, no S3 or S4. Regular rate and rhythm. No murmurs, rubs or gallops. ABDOMEN: Soft, moderate incisional tenderness, nondistended, hypoactive bowel sounds. No guarding, no rebound. Incisional dressing intact, saturated with old sanguinous blood. No erythema or drainage noted. - Labs CBC & Chem 7: 02/02/17 15:09 05/05/17 07:45 Labs: Abnormal Lab Results - Last 24 Hours (Table) 02/02/17 02/02/17 02/02/17 Range/Units 07:45 07:45 15:09 WBC 11.8 H 11.1 H (3.8-10.6) k/uL Neutrophils # 10.6 H 9.3 H (1.3-7.7) k/uL Lymphocytes # 0.6 L (1.0-4.8) k/uL Glucose 129 H (74-99) mg/dL Assessment and Plan Plan: Impression: 1.Diverticulitis status post lower anterior resection on 02/01/2017. Plan: Continue to monitor patient. Continue clear liquid diet. Continue supportive treatment and pain management. Continue GI and DVT prophylaxis. Continue incentive spirometry 10 times an hour. Continue to monitor incision. Repeat CBC and BMP in a.m. The above impression and plan have been discussed and directed by Dr. Smith. Angus ANNE acting as scribe for Dr. Smith.
[2017-02-03] MEDS: KETOROLAC 30 MG/ML 1 ML VIAL IVP PRN ×2 (05:54→10:54)
[2017-02-03 07:19] LABS: Basophils % (A) 1 %; CH 29.4; CHCM 32.2; Eosinophils % (A) 1 %; HCT 32.6 % (34.0-46.0); HGB 10.3 gm/dL (11.4-16.0); Luc # (Auto) 0.08; Luc % (Auto) 1; Lymphocytes % (A) 36 %; MCHC 31.7 g/dL (31.0-37.0); MCV 91.6 fL (80.0-100.0); Mean Platelet Volume 7.7; Monocytes # (A) 0.3 k/uL (0-1.0); Monocytes % (A) 5 %; Neutrophils # (A) 3.1 k/uL (1.3-7.7); Neutrophils % (A) 56 %; RBC 3.56 m/uL (3.80-5.40); RDW 13.7 % (11.5-15.5); WBC 5.5 k/uL (3.8-10.6); WBC (Perox) 5.95
[2017-02-03 07:27] LABS: ALT 36 U/L (9-52); AST 23 U/L (14-36); Alkaline Phosphatase 46 U/L (38-126); Anion Gap 5 mmol/L; Blood Urea Nitrogen 4 mg/dL (7-17); Calcium 8.2 mg/dL (8.4-10.2); Carbon Dioxide 26 mmol/L (22-30); Chloride 107 mmol/L (98-107); Glucose 93 mg/dL (74-99); Non-African American GFR(MDRD) >60 (>60 ml/min/1.73 sqM); Sodium 138 mmol/L (137-145); Total Bilirubin 0.4 mg/dL (0.2-1.3); Total Protein 5.2 g/dL (6.3-8.2)
[2017-02-03] MEDS: HEPARIN SODIUM,PORCINE 5,000 UNIT/ML 1 ML VIAL SQ SCH ×2 (08:56→15:52)
[2017-02-03] MEDS: FAMOTIDINE 20 MG/2 ML VIAL IV SCH ×2 (08:56→21:05)
[2017-02-03] MEDS: FLUoxetine HCL 10 MG CAP PO SCH ×2 (08:57→21:15)
--- NOTE | 2017-02-03 10:05 | P.PN ---
Subjective Principal diagnosis: Diverticular disease The patient is postop from a low anterior resection for diverticular disease. In a few bloody bowel movements through the night. She is not feeling lightheaded. The epidural was not working well for her. It's repeatedly beeping " occluded", she's having more pain today. No nausea or vomiting. Objective - Vital Signs Vital signs: Vital Signs Temp 97.3 F L 02/03/17 07:00 Pulse 76 02/03/17 07:00 Resp 16 02/03/17 07:00 BP 134/67 02/03/17 07:00 Pulse Ox 94 L 02/03/17 04:00 Intake & Output 02/02/17 02/03/17 02/03/17 18:59 06:59 18:59 Intake Total 2600 1438 Output Total 1999 2700 1650 Balance 600 -1262 -1650 Weight 88.904 kg Intake: Intake, IV Titration 1000 1438 Amount D5-0.45% NaCl with KCl 1000 1438 20Meq/l 1,000 ml @ 125 mls/hr IV .Q8H MERYL Rx#: [id number] Oral 1600 Output: Urine 1999 2700 1650 Uretheral ([place]) 1999 Other: Voiding Method Indwelling Catheter Indwelling Catheter # Bowel Movements 1 - Constitutional General appearance: Present: cooperative, no acute distress - Respiratory Respiratory: bilateral: CTA - Cardiovascular Rhythm: regular - Gastrointestinal General gastrointestinal: Present: decreased bowel sounds, soft Localized gastrointestinal: surgical scar: diffuse (The dressing is intact with bloody drainage) - Labs CBC & Chem 7: 02/03/17 06:40 02/03/17 06:40 Labs: Abnormal Lab Results - Last 24 Hours (Table) 02/02/17 02/02/17 02/03/17 Range/Units 07:45 15:09 06:40 WBC 11.1 H (3.8-10.6) k/uL RBC 3.56 L (3.80-5.40) m/uL Hgb 10.3 L (11.4-16.0) gm/dL Hct 32.6 L (34.0-46.0) % Neutrophils # 9.3 H (1.3-7.7) k/uL BUN (7-17) mg/dL Glucose 129 H (74-99) mg/dL Calcium (8.4-10.2) mg/dL Total Protein (6.3-8.2) g/dL Albumin (3.5-5.0) g/dL 02/03/17 Range/Units 06:40 WBC (3.8-10.6) k/uL RBC (3.80-5.40) m/uL Hgb (11.4-16.0) gm/dL Hct (34.0-46.0) % Neutrophils # (1.3-7.7) k/uL BUN 4 L (7-17) mg/dL Glucose (74-99) mg/dL Calcium 8.2 L (8.4-10.2) mg/dL Total Protein 5.2 L (6.3-8.2) g/dL Albumin 2.8 L (3.5-5.0) g/dL Assessment and Plan (1) Colonic diverticular disease Status: Acute Plan: We'll discontinue the epidural since it's not working well. Slowly advance her diet. Monitor the rectal bleeding. Progressing slowly.
[2017-02-03] MEDS: ONDANSETRON 4 MG/2 ML VIAL IVP PRN (15:14)
[2017-02-03] MEDS: LACTATED RINGERS 1,000 ML IV SCH (15:19)
[2017-02-03] MEDS: D5-0.45% NACL WITH KCL 20MEQ/L 1,000 ML IV SCH ×2 (15:20→15:21)
[2017-02-03] MEDS: HYDROcodone/APAP 5-325MG 1 EACH TAB PO PRN ×2 (15:49→21:09)
--- NOTE | 2017-02-03 18:07 | P.PN ---
Subjective Principal diagnosis: Patient is status post lower anterior resection. Pain controlled. She did have one bloody bowel movement. Denies any chest pain or shortness breath. Denies any nausea or vomiting currently on a clear liquid diet. Sitting up at bedside chair Objective - Vital Signs Vital signs: Vital Signs Temp 98.1 F 02/03/17 15:00 Pulse 68 02/03/17 16:00 Resp 16 02/03/17 16:00 BP 133/72 02/03/17 15:00 Pulse Ox 100 02/03/17 15:00 Intake & Output 02/02/17 02/03/17 02/03/17 18:59 06:59 18:59 Intake Total 2600 1438 600 Output Total 1999 2700 3300 Balance 600 -1262 -2700 Weight 88.904 kg Intake: Intake, IV Titration 1000 1438 Amount D5-0.45% NaCl with KCl 1000 1438 20Meq/l 1,000 ml @ 125 mls/hr IV .Q8H MEYRL Rx#: [id number] Oral 1600 600 Output: Urine 1999 2700 3300 Uretheral ([place]) 1999 Other: Voiding Method Indwelling Catheter Indwelling Catheter # Voids 2 # Bowel Movements 1 - Exam HEENT head normocephalic and atraumatic Neck is supple no JVD no goiter no lymphadenopathy Chest is clear to auscultation no wheezing Cardiac exam reveals regular heart sounds no gallops no murmurs Abdomen is soft nontender no organomegaly Extremity exam reveals no edema no cyanosis or clubbing - Labs CBC & Chem 7: 02/03/17 06:40 02/03/17 06:40 Labs: Abnormal Lab Results - Last 24 Hours (Table) 02/03/17 02/03/17 Range/Units 06:40 06:40 RBC 3.56 L (3.80-5.40) m/uL Hgb 10.3 L (11.4-16.0) gm/dL Hct 32.6 L (34.0-46.0) % BUN 4 L (7-17) mg/dL Calcium 8.2 L (8.4-10.2) mg/dL Total Protein 5.2 L (6.3-8.2) g/dL Albumin 2.8 L (3.5-5.0) g/dL Assessment and Plan Plan: 1. Diverticulitis status post lower anterior resection. Postop day #1. Continue pain control and postop orders per surgical service. Patient currently on a clear liquid diet. Patient did have a large bloody bowel movement. We'll check CBC. 2. Depression continue with her Prozac 3. Chronic back pain. On muscle relaxers and Ultram at home. At this time we' ll continue with current postop IV pain medications. Hold Ultram and muscle relaxer GI prophylaxis Pepcid and DVT prophylaxis subcu heparin
[2017-02-03] MEDS: HYDROmorphone 1 MG/ML 1 ML SYRINGE IVP PRN (22:44)
[2017-02-04] MEDS: HEPARIN SODIUM,PORCINE 5,000 UNIT/ML 1 ML VIAL SQ SCH ×4 (00:18→23:08)
[2017-02-04] MEDS: HYDROcodone/APAP 5-325MG 1 EACH TAB PO PRN ×3 (03:20→15:43)
[2017-02-04] MEDS: D5-0.45% NACL WITH KCL 20MEQ/L 1,000 ML IV SCH ×4 (04:58→22:30)
[2017-02-04] MEDS: HYDROmorphone 1 MG/ML 1 ML SYRINGE IVP PRN (06:28)
[2017-02-04 07:30] LABS: Basophils # (A) 0.1 k/uL (0-0.2); Basophils % (A) 1 %; CH 29.7; CHCM 32.5; Eosinophils # (A) 0.1 k/uL (0-0.7); Eosinophils % (A) 2 %; HCT 36.8 % (34.0-46.0); HDW 2.33; HGB 11.9 gm/dL (11.4-16.0); Luc # (Auto) 0.12; Luc % (Auto) 2; Lymphocytes # (A) 2.8 k/uL (1.0-4.8); Lymphocytes % (A) 40 %; MCH 29.6 pg (25.0-35.0); MCHC 32.3 g/dL (31.0-37.0); MCV 91.6 fL (80.0-100.0); Mean Platelet Volume 7.5; Monocytes # (A) 0.4 k/uL (0-1.0); Monocytes % (A) 6 %; Neutrophils # (A) 3.6 k/uL (1.3-7.7); Neutrophils % (A) 50 %; RBC 4.02 m/uL (3.80-5.40); RDW 13.6 % (11.5-15.5); WBC 7.1 k/uL (3.8-10.6); WBC (Perox) 7.49
[2017-02-04 07:42] LABS: ALT 45 U/L (9-52); AST 41 U/L (14-36); Alkaline Phosphatase 52 U/L (38-126); Anion Gap 6 mmol/L; Blood Urea Nitrogen 2 mg/dL (7-17); Carbon Dioxide 29 mmol/L (22-30); Chloride 105 mmol/L (98-107); Glucose 84 mg/dL (74-99); Non-African American GFR(MDRD) >60 (>60 ml/min/1.73 sqM); Potassium 4.4 mmol/L (3.5-5.1); Sodium 140 mmol/L (137-145); Total Bilirubin 0.4 mg/dL (0.2-1.3)
[2017-02-04] MEDS: LACTATED RINGERS 1,000 ML IV SCH (08:14)
[2017-02-04] MEDS: FLUoxetine HCL 10 MG CAP PO SCH ×2 (08:15→20:39)
--- NOTE | 2017-02-04 09:20 | P.PN ---
Subjective Principal diagnosis: Diverticular disease The patient is doing well. She had a small, loose, brown bowel movement. No nausea or vomiting. Tolerating full liquids. Pain is better controlled with Toradol than other pain medications. Objective - Vital Signs Vital signs: Vital Signs Temp 97.4 F L 02/04/17 09:07 Pulse 87 02/04/17 09:07 Resp 16 02/04/17 09:07 BP 113/68 02/04/17 09:07 Pulse Ox 98 02/04/17 09:07 Intake & Output 02/03/17 02/04/17 02/04/17 18:59 06:59 18:59 Intake Total 600 100 Output Total 3750 200 Balance -3150 -100 Weight 88.904 kg Intake: Oral 600 100 Output: Urine 3750 200 Other: Voiding Method Indwelling Catheter # Voids 2 - Constitutional General appearance: Present: cooperative, no acute distress - Gastrointestinal General gastrointestinal: Present: normal bowel sounds, soft Localized gastrointestinal: surgical scar: midline (Dressing is intact clean and dry) - Labs CBC & Chem 7: 02/04/17 06:59 02/04/17 06:59 Labs: Abnormal Lab Results - Last 24 Hours (Table) 02/04/17 Range/Units 06:59 BUN 2 L (7-17) mg/dL AST 41 H (14-36) U/L Total Protein 6.0 L (6.3-8.2) g/dL Albumin 3.4 L (3.5-5.0) g/dL Assessment and Plan (1) Colonic diverticular disease Status: Acute Plan: Patient's progressing well. We'll Hep-Lock her IV. Advance the diet as tolerated. Give her additional doses of Toradol today.
[2017-02-04] MEDS: ONDANSETRON 4 MG/2 ML VIAL IVP PRN ×2 (11:14→19:41)
[2017-02-04] MEDS: KETOROLAC 30 MG/ML 1 ML VIAL IVP SCH ×3 (12:20→23:08)
[2017-02-04] MEDS: FAMOTIDINE 20 MG TAB PO SCH ×2 (12:20→20:39)
[2017-02-04] MEDS: FAMOTIDINE 20 MG/2 ML VIAL IV SCH (15:11)
--- NOTE | 2017-02-04 18:15 | P.PN ---
Subjective Principal diagnosis: Patient is status post lower anterior resection. Pain controlled. She did have one bloody bowel movement. Denies any chest pain or shortness breath. Denies any nausea or vomiting currently on a clear liquid diet. Sitting up at bedside chair Patient is feeling better, she is complaining of nausea, she is having fewer bowel movements consistent of black liquid, no blood in the stools, she has minimal abdominal discomfort and otherwise no other complaints Objective - Vital Signs Vital signs: Vital Signs Temp 97.5 F L 02/04/17 14:45 Pulse 87 02/04/17 15:29 Resp 16 02/04/17 15:29 BP 136/74 02/04/17 14:45 Pulse Ox 99 02/04/17 14:45 Intake & Output 02/03/17 02/04/17 02/04/17 18:59 06:59 18:59 Intake Total 600 100 Output Total 3750 200 200 Balance -3150 -100 -200 Weight 88.904 kg Intake: Oral 600 100 Output: Urine 3750 200 200 Other: Voiding Method Indwelling Catheter # Voids 2 3 - Exam HEENT head normocephalic and atraumatic Neck is supple no JVD no goiter no lymphadenopathy Chest is clear to auscultation no wheezing Cardiac exam reveals regular heart sounds no gallops no murmurs Abdomen is soft nontender no organomegaly Extremity exam reveals no edema no cyanosis or clubbing - Labs CBC & Chem 7: 02/04/17 06:59 02/04/17 06:59 Labs: Abnormal Lab Results - Last 24 Hours (Table) 02/04/17 Range/Units 06:59 BUN 2 L (7-17) mg/dL AST 41 H (14-36) U/L Total Protein 6.0 L (6.3-8.2) g/dL Albumin 3.4 L (3.5-5.0) g/dL Assessment and Plan Plan: 1. Diverticulitis status post lower anterior resection. Postop day #3. Continue pain control and postop orders per surgical service. Patient currently on a clear liquid diet. Patient did have a large bloody bowel movement. We'll check CBC. 2. Depression continue with her Prozac 3. Chronic back pain. On muscle relaxers and Ultram at home. At this time we' ll continue with current postop IV pain medications. Hold Ultram and muscle relaxer GI prophylaxis Pepcid and DVT prophylaxis subcu heparin
[2017-02-04] MEDS: MELATONIN 5 MG TABLET PO SCH (20:39)
[2017-02-05] MEDS: HYDROcodone/APAP 5-325MG 1 EACH TAB PO PRN ×4 (04:33→23:16)
[2017-02-05] MEDS: ONDANSETRON 4 MG/2 ML VIAL IVP PRN ×3 (04:33→21:18)
[2017-02-05] MEDS: KETOROLAC 30 MG/ML 1 ML VIAL IVP SCH ×3 (06:04→14:31)
[2017-02-05] MEDS: D5-0.45% NACL WITH KCL 20MEQ/L 1,000 ML IV SCH (06:09)
[2017-02-05 07:03] LABS: Basophils % (A) 1 %; CH 29.8; CHCM 33.3; Eosinophils # (A) 0.3 k/uL (0-0.7); Eosinophils % (A) 3 %; HCT 39.1 % (34.0-46.0); HDW 2.27; HGB 12.5 gm/dL (11.4-16.0); Luc # (Auto) 0.11; Luc % (Auto) 1; Lymphocytes # (A) 1.7 k/uL (1.0-4.8); Lymphocytes % (A) 19 %; MCH 28.8 pg (25.0-35.0); MCV 89.9 fL (80.0-100.0); Mean Platelet Volume 7.3; Monocytes # (A) 0.4 k/uL (0-1.0); Monocytes % (A) 5 %; Neutrophils # (A) 6.1 k/uL (1.3-7.7); Neutrophils % (A) 71 %; RBC 4.35 m/uL (3.80-5.40); RDW 13.6 % (11.5-15.5); WBC 8.6 k/uL (3.8-10.6); WBC (Perox) 8.96
[2017-02-05 07:22] LABS: ALT 58 U/L (9-52); AST 41 U/L (14-36); Alkaline Phosphatase 68 U/L (38-126); Anion Gap 9 mmol/L; Blood Urea Nitrogen 8 mg/dL (7-17); Calcium 9.5 mg/dL (8.4-10.2); Carbon Dioxide 29 mmol/L (22-30); Chloride 99 mmol/L (98-107); Glucose 91 mg/dL (74-99); Non-African American GFR(MDRD) >60 (>60 ml/min/1.73 sqM); Potassium 4.4 mmol/L (3.5-5.1); Sodium 137 mmol/L (137-145); Total Bilirubin 0.7 mg/dL (0.2-1.3); Total Protein 6.3 g/dL (6.3-8.2)
[2017-02-05] MEDS: FAMOTIDINE 20 MG TAB PO SCH ×2 (08:27→20:05)
[2017-02-05] MEDS: HEPARIN SODIUM,PORCINE 5,000 UNIT/ML 1 ML VIAL SQ SCH ×2 (08:27→15:54)
[2017-02-05] MEDS: FLUoxetine HCL 10 MG CAP PO SCH ×2 (08:27→20:05)
--- NOTE | 2017-02-05 10:40 | P.PN ---
Subjective Patient is status post lower anterior resection. She's currently on full liquid diet. She is complaining of nausea she feels that it may be related to the milk product's. Patient reports improvement in her abdominal pain. Denies any actual vomiting. She is having stools. No further episodes of bleeding. Denies any chest pain or shortness of breath. Objective - Vital Signs Vital signs: Vital Signs Temp 98.1 F 02/05/17 08:31 Pulse 76 02/05/17 08:31 Resp 16 02/05/17 08:31 BP 107/66 02/05/17 08:31 Pulse Ox 93 L 02/05/17 08:31 Intake & Output 02/04/17 02/05/17 02/05/17 18:59 06:59 18:59 Intake Total 300 Output Total 200 Balance -200 300 Weight 88.904 kg Intake: Oral 300 Output: Urine 200 Other: Voiding Method Indwelling Catheter Toilet # Voids 3 1 - Exam Head normocephalic Neck supple Lungs clear to auscultation bilaterally no wheezing or crackles Heart regular rate and rhythm S1-S2, no rub or gallop Abdomen is positive bowel sounds. Incision sites bandage has some bleeding noted Extremities no edema Neuro alert and orientated to 3 - Labs CBC & Chem 7: 02/05/17 06:33 02/05/17 06:31 Labs: Abnormal Lab Results - Last 24 Hours (Table) 02/05/17 Range/Units 06:31 AST 41 H (14-36) U/L ALT 58 H (9-52) U/L Assessment and Plan Plan: 1. Diverticulitis status post lower anterior resection. Postop day #4. Currently on full liquid diet. We'll await further surgical recommendations. Continue pain control. Patient has had no further blood in stools. 2. Depression continue with her Prozac 3. Chronic back pain. On muscle relaxers and Ultram at home. He was current hospital pain medications GI prophylaxis Pepcid and DVT prophylaxis subcu heparin Awaiting further surgical recommendations in regards to discharge. If patient discharge home today, she needs to follow up with Dr. Canales in 1 week.
[2017-02-05] MEDS: LACTATED RINGERS 1,000 ML IV SCH (10:52)
--- NOTE | 2017-02-05 14:27 | P.PN ---
Subjective Patient is a 36-year-old female, patient of Dr. Canales in outpatient setting, status post low anterior resection for chronic diverticulitis with left lower quadrant pain. Patient is postop day #4. Denies chills, fevers, nausea, vomiting, shortness of breath, or chest pain. Patient is urinating without difficulty. Passing flatus with small bowel movement. Incisional pain controlled. Tolerating full liquid diet. Patient is requesting a soft diet. Afebrile. No evidence of leukocytosis. Hemoglobin stable at 12.5. Objective - Vital Signs Vital signs: Vital Signs Temp 98.1 F 02/05/17 08:31 Pulse 76 02/05/17 08:31 Resp 16 02/05/17 08:31 BP 107/66 02/05/17 08:31 Pulse Ox 93 L 02/05/17 08:31 Intake & Output 02/04/17 02/05/17 02/05/17 18:59 06:59 18:59 Intake Total 300 Output Total 200 Balance -200 300 Weight 88.904 kg Intake: Oral 300 Output: Urine 200 Other: Voiding Method Indwelling Catheter Toilet # Voids 3 1 - Exam GENERAL: Pt awake and alert, well-appearing, well-nourished, and in no acute distress. HEAD: Atraumatic, normocephalic. LUNGS: Breath sounds clear to auscultation bilaterally. No wheezes, rales, or rhonchi. HEART: Heart S1, S2, no S3 or S4. Regular rate and rhythm. No murmurs, rubs or gallops. ABDOMEN: Soft, mild incisional tenderness, nondistended, active bowel sounds. No guarding, no rebound. Incisional dressing dry and intact. - Labs CBC & Chem 7: 02/05/17 06:33 02/05/17 06:31 Labs: Abnormal Lab Results - Last 24 Hours (Table) 02/05/17 Range/Units 06:31 AST 41 H (14-36) U/L ALT 58 H (9-52) U/L Assessment and Plan Plan: Impression: 1.Diverticulitis status post lower anterior resection on 02/01/2017. Plan: Continue to monitor patient. Advance diet to soft. Continue supportive treatment and pain management. Continue GI and DVT prophylaxis. Continue incentive spirometry 10 times an hour. Anticipate discharge in next 24 hours. The above impression and plan have been discussed and directed by Dr. Smith. Angus ANNE acting as scribe for Dr. Smith.
[2017-02-05] MEDS: HYDROmorphone 1 MG/ML 1 ML SYRINGE IVP PRN (16:35)
[2017-02-05] MEDS: MELATONIN 5 MG TABLET PO SCH (20:05)
[2017-02-06 01:20] VITALS: RESP 16
[2017-02-06] MEDS: HEPARIN SODIUM,PORCINE 5,000 UNIT/ML 1 ML VIAL SQ SCH ×2 (01:31→09:05)
[2017-02-06] MEDS: HYDROcodone/APAP 5-325MG 1 EACH TAB PO PRN ×3 (04:34→11:19)
[2017-02-06] MEDS: LACTATED RINGERS 1,000 ML IV SCH (06:43)
[2017-02-06 07:35] VITALS: BP 117/82; PULSE 77; TEMP 98.2
[2017-02-06 08:06] LABS: Basophils % (A) 1 %; CH 29.9; Eosinophils # (A) 0.3 k/uL (0-0.7); Eosinophils % (A) 5 %; HCT 40.4 % (34.0-46.0); HDW 2.22; Luc # (Auto) 0.09; Luc % (Auto) 1; Lymphocytes # (A) 1.5 k/uL (1.0-4.8); Lymphocytes % (A) 23 %; MCH 29.4 pg (25.0-35.0); MCHC 32.3 g/dL (31.0-37.0); MCV 91.1 fL (80.0-100.0); Monocytes # (A) 0.3 k/uL (0-1.0); Monocytes % (A) 5 %; Neutrophils # (A) 4.3 k/uL (1.3-7.7); Neutrophils % (A) 66 %; RBC 4.43 m/uL (3.80-5.40); RDW 13.8 % (11.5-15.5); WBC 6.5 k/uL (3.8-10.6); WBC (Perox) 6.47
[2017-02-06] MEDS: FAMOTIDINE 20 MG TAB PO SCH (09:05)
[2017-02-06] MEDS: FLUoxetine HCL 10 MG CAP PO SCH (09:05)
[2017-02-06 09:35] LABS: ALT 73 U/L (9-52); AST 66 U/L (14-36); Alkaline Phosphatase 74 U/L (38-126); Anion Gap 8 mmol/L; Blood Urea Nitrogen 10 mg/dL (7-17); Calcium 9.7 mg/dL (8.4-10.2); Carbon Dioxide 28 mmol/L (22-30); Chloride 102 mmol/L (98-107); Glucose 94 mg/dL (74-99); Non-African American GFR(MDRD) >60 (>60 ml/min/1.73 sqM); Potassium 4.8 mmol/L (3.5-5.1); Sodium 138 mmol/L (137-145); Total Bilirubin 0.7 mg/dL (0.2-1.3); Total Protein 6.5 g/dL (6.3-8.2)
--- NOTE | 2017-02-06 11:33 | P.DS ---
Providers Date of admission: 02/01/17 08:01 Expected date of discharge: 02/06/17 Attending physician: Juanito Smith Consults: 02/01/17 12:46 Consult Physician Routine Consulting Provider: Marcia Canales Consult Reason/Comments: Medical management Do you want consulting provider notified?: Yes Primary care physician: Marcia Parker [facility] Hospital Course: Patient is a 36-year-old female, patient of Dr. Canales in outpatient setting, with medical history significant for chronic diverticulitis with left lower quadrant pain. Patient presented to the hospital for elective low anterior resection. Patient tolerated procedure well. Post surgery, patient did have some bloody bowel movements with patient remaining asymptomatic and hemoglobin stable. Patient otherwise had an uneventful postoperative course and was deemed stable for discharge to home with close follow-up in the outpatient setting. Discharge diagnoses: 1. Chronic diverticulitis status post lower anterior resection The above impression and plan have been discussed and directed by Dr. Smith. Angus ANNE acting as scribe for Dr. Smith. Procedures: Low anterior resection Patient Condition at Discharge: Good Plan - Discharge Summary New Discharge Prescriptions: Docusate [Colace] 100 mg PO BID #20 capsule HYDROcodone/APAP 7.5-325MG [[place] 7.5-325] 1 tab PO Q6HR PRN #28 tab PRN Reason: Pain Discharge Medication List FLUoxetine HCL [PROzac] 10 mg PO BID 12/11/16 [History] Ondansetron HCl [Zofran] 4 mg PO Q8HR PRN 01/30/17 [History] Docusate [Colace] 100 mg PO BID #20 capsule 02/05/17 [Rx] HYDROcodone/APAP 7.5-325MG [[place] 7.5-325] 1 tab PO Q6HR PRN #28 tab 02/05/17 [ Rx] Follow up Appointment(s)/Referral(s): Marcia Canales MD [Primary Care Provider] - 1 Week Juanito Smith MD [STAFF PHYSICIAN] - 1 Week Patient Instructions/Handouts: Colectomy (DC), Staple Care (DC) Activity/Diet/Wound Care/Special Instructions: No heavy lifting, pushing, or pulling items greater than 10 pounds. Soft diet Shower daily, no soaking in bath tubs, pools, or hot tubs. No driving while taking pain medication. Notify surgeon with any signs or symptoms of infection, increased pain, or not tolerating diet. Discharge Disposition: HOME SELF-CARE
== END 2017-02-06 12:45 | disposition home or self-care (01) | DRG 331 ==
LOC: 2ORWHC 08:01 → 3SUR 12:14
PROVIDERS: ADMIT Surgery; ATTEND Surgery
PROC: 0DBN0ZZ Excision of Sigmoid Colon, Open Approach (ICD-10-PCS; principal; 2017-02-01 09:35)
DX: K57.32 Diverticulitis of large intestine without perforation or abscess without bleeding (principal); F32.9 Major depressive disorder, single episode, unspecified; Z79.899 Other long term (current) drug therapy; G89.29 Other chronic pain; M54.9 Dorsalgia, unspecified
CPT/HCPCS: 80053; 81025; 85025; 86850; 86900; 86901; 88307; 88342; 94760

== ENCOUNTER 2017-03-15 19:47 | Inpatient (IN) | payer OTHER ==
[2017-03-15] MEDS ORDERED: RX INFO: IV CONTRAST WAS GIVEN 1 EACH MISC MISCELLANE PRN (20:21)
[2017-03-15] MEDS ORDERED: ONDANSETRON 4 MG/2 ML VIAL IVP STA (20:21)
[2017-03-15] MEDS ORDERED: HYDROmorphone 1 MG/ML 1 ML SYRINGE IVP STA (20:21)
[2017-03-15] MEDS ORDERED: SODIUM CHLORIDE 0.9% 1,000 ML IV STA ×2 (20:21)
[2017-03-15] MEDS ORDERED: ACETAMINOPHEN IV (For NPO) 1,000 MG in EMPTY BAG 1 BAG IVPB ONE (20:23)
[2017-03-15 20:37] LABS: Appearance,Urine Cloudy (Clear); Bacteria,Urine Rare /hpf; Bilirubin,Urine Negative (Negative); Glucose,Urine (UA) Negative (Negative); Ketones,Urine 1+ (Negative); Leukocyte Esterase,Urine Negative (Negative); Mucus,Urine Rare /hpf; Nitrite,Urine Negative (Negative); Particle Count 4155; Protein,Urine Trace (Negative); RBC,Urine 1 /hpf (0-5); Specific Gravity,Urine 1.022 (1.001-1.035); Squamous Epithelial Cell,Urine 9 /hpf (0-4); UA Billing (MACRO vs. MICRO) MICRO; Urobilinogen,Urine <2.0 mg/dL (<2.0); WBC,Urine 1 /hpf (0-5)
[2017-03-15 20:45] LABS: ALT 36 U/L (9-52); AST 24 U/L (14-36); Alkaline Phosphatase 72 U/L (38-126); Amylase 39 U/L (30-110); Anion Gap 11 mmol/L; Blood Urea Nitrogen 10 mg/dL (7-17); Calcium 8.8 mg/dL (8.4-10.2); Carbon Dioxide 21 mmol/L (22-30); Chloride 106 mmol/L (98-107); Glucose 114 mg/dL (74-99); Non-African American GFR(MDRD) >60 (>60 ml/min/1.73 sqM); Partial Thromboplastin Time 24.3 sec (22.0-30.0); Potassium 3.7 mmol/L (3.5-5.1); Sodium 138 mmol/L (137-145); Total Bilirubin 0.9 mg/dL (0.2-1.3); Total Protein 7.1 g/dL (6.3-8.2)
[2017-03-15 20:49] LABS: Basophils # (A) 0.1 k/uL (0-0.2); Basophils % (A) 1 %; CH 30.2; CHCM 33.6; Eosinophils # (A) 0.2 k/uL (0-0.7); Eosinophils % (A) 2 %; HDW 2.32; HGB 14.2 gm/dL (11.4-16.0); Luc # (Auto) 0.05; Luc % (Auto) 1; Lymphocytes # (A) 0.5 k/uL (1.0-4.8); Lymphocytes % (A) 5 %; MCH 29.8 pg (25.0-35.0); MCHC 32.9 g/dL (31.0-37.0); MCV 90.4 fL (80.0-100.0); Mean Platelet Volume 7.2; Monocytes # (A) 0.3 k/uL (0-1.0); Monocytes % (A) 3 %; Neutrophils # (A) 8.2 k/uL (1.3-7.7); Neutrophils % (A) 89 %; RBC 4.75 m/uL (3.80-5.40); RDW 14.3 % (11.5-15.5); WBC 9.2 k/uL (3.8-10.6); WBC (Perox) 8.94
--- NOTE | 2017-03-15 21:27 | CT ---
EXAMINATION TYPE: CT abdomen pelvis w con DATE OF EXAM: 03/15/2017 COMPARISON: Prior CT abdomen pelvis 01/08/2017 HISTORY: Nausea, vomiting and diarrhea with pelvic pain. Anterior bowel resection 17. CT DLP: 1714.00 mGycm Automated exposure control for dose reduction was used. TECHNIQUE: Helical acquisition of images from the lung bases through the pelvis have been completed. CONTRAST: Performed without Oral Contrast and with IV Contrast, patient injected with 100 mL of Omnipaque 300. FINDINGS: LUNG BASES: No significant abnormality is appreciated. AORTA: Aorta is stable, retroaortic left renal vein is noted. LIVER/GB: Patient is post cholecystectomy. Liver shows low attenuation as on prior. PANCREAS: No significant abnormality is seen. SPLEEN: No significant abnormality is seen. ADRENALS: No significant abnormality is seen. KIDNEYS: No significant abnormality is seen. REPRODUCTIVE ORGANS: There may be left ovarian cysts, some local fluid present adjacent to the left o vary region. Cysts also associated with the right ovary. BOWEL: Wall thickening is noted of the rectosigmoid colon, and anastomotic changes present, there is diverticular change in the descending and sigmoid colon. The appendix is normal. FREE AIR: No Free Air visible. ASCITES: None visible. PELVIC ADENOPATHY: None visualized. RETROPERITONEAL ADENOPATHY: No Retroperitoneal Adenopathy visible. URINARY BLADDER: No significant abnormality is seen. OSSEOUS STRUCTURES: No significant abnormality is seen. IMPRESSION: COLONIC WALL THICKENING, POSTOP CHANGES, CORRELATE FOR COLITIS. BILATERAL OVARIAN CYSTS ARE SUSPECTED . NORMAL APPENDIX. MINIMAL FREE FLUID IN THE PELVIS MAY BE PHYSIOLOGIC.
--- NOTE | 2017-03-15 21:59 | ED ---
Abdominal Pain HPI - General Chief Complaint: Abdominal Pain Stated Complaint: Abd Pain Time Seen by Provider: 03/15/17 20:17 Source: patient Mode of arrival: ambulatory Limitations: no limitations - History of Present Illness Initial Comments: This 36-year-old white female presents complaining of some lower abdominal pain which started approximately 5 days ago. She has also had multiple bouts of nausea vomiting and diarrhea. She denies any blood in her stool or black tarry stools. She has not measured any temperature at home but does have a temperature of 100.9 in the emergency department. She relates a history of having a bowel resection done on 02/01/2017 in relation to diverticulitis with perforation. She denies feeling well up until approximately 5 days ago. She denies any other complaints or modifying factors. She states that she was unable to keep down any of her medications today. She was unable to keep down any fluids or food. - Related Data Home Medications Medication Instructions Recorded Confirmed FLUoxetine HCL [PROzac] 10 mg PO BID 12/11/16 03/15/17 Ondansetron HCl [Zofran] 4 mg PO Q8HR PRN 01/30/17 03/15/17 traMADol HCL [Ultram] 50 mg PO Q4HR PRN 03/15/17 03/15/17 Allergies Allergy/AdvReac Type Severity Reaction Status Date / Time diclofenac sodium Allergy Unknown Verified 03/15/17 21:39 [From Arthrotec] misoprostol [From Arthrotec] Allergy Unknown Verified 03/15/17 21:39 pomegranate Allergy tongue numb Verified 03/15/17 21:39 Review of Systems ROS Statement: Those systems with pertinent positive or pertinent negative responses have been documented in the HPI. ROS Other: All systems not noted in ROS Statement are negative. Past Medical History Additional Past Medical History / Comment(s): rib fx, palpitations, previous hx. acute diverticulitis, right sided abd. pain, pain w/eating, tx. in November w/ antibiotics History of Any Multi-Drug Resistant Organisms: None Reported Past Surgical History: Section, Cholecystectomy Past Anesthesia/Blood Transfusion Reactions: No Reported Reaction Past Psychological History: No Psychological Hx Reported Smoking Status: Never smoker Past Alcohol Use History: Rare Past Drug Use History: None Reported - Past Family History Father Family Medical History: Unable to Obtain Mother Family Medical History: Unable to Obtain General Exam - General Exam Comments Initial Comments: GENERAL: The patient is well nourished and well hydrated. VITAL SIGNS: Heart rate, blood pressure, respiratory rate reviewed as recorded in nurse's notes. EYES: Pupils are round and reactive. Extraocular movements are intact. No conjunctival / lid redness or swelling. ENT: No external evidence of injury, swelling, or ecchymosis. Airway is patent. Throat is clear. NECK: Nontender. No swelling or evidence of injury. No subcutaneous emphysema. Trachea is midline. No thyroid mass. HEART: Regular rate and rhythm. Good peripheral pulses. LUNGS/CHEST: Breath sounds clear and equal bilaterally. No rales, rhonchi, or wheezes. No ecchymosis, subcutaneous emphysema, or tenderness. ABDOMEN: There is tenderness noted to the midline lower abdomen and bilateral lower quadrants. No palpable masses or organomegaly. No peritoneal signs. No abdominal wall swelling or ecchymosis. EXTREMITIES: No extremity tenderness. Normal muscle tone and function. No thoracolumbar tenderness. NEUROLOGIC: Sensation is grossly intact. Cranial nerve exam reveals face is symmetrical, tongue is midline, speech is clear. SKIN: No abrasions or ecchymosis is noted. No induration or masses noted. PSYCHIATRIC: Alert and oriented. Appropriate behavior and judgment. Limitations: no limitations Course Vital Signs 03/15/17 03/15/17 19:55 21:21 Temperature 100.9 F H 99.3 F Pulse Rate 122 H 94 Respiratory 20 18 Rate Blood Pressure 126/72 116/63 O2 Sat by Pulse 97 95 Oximetry Medical Decision Making - Medical Decision Making The patient was seen and examined. All diagnostics were reviewed. An IV is started and she receives some Dilaudid as well as Zofran. She also received ample fluid hydration. She is feeling improved on recheck. The laboratory and urinalysis is fairly unremarkable. The computed tomography scan of abdomen and pelvis does show some postsurgical changes. It also shows some thickened colon consistent with a likely colitis. There is some likely physiologic fluid in the abdomen. Overall, is felt as though colitis does clinically correlate. It is felt as though she would require admission to the hospital. Case was discussed with Dr. Welsh and he would like the patient admitted to the hospital, have stool studies, check for C. diff, Johanna Vicente, and consult Dr. Canales. The patient is agreeable to this plan. She is admitted to the general medical floor for further treatment. - Lab Data Result diagrams: 03/15/17 20:20 03/15/17 20:20 Lab Results 03/15/17 03/15/17 03/15/17 Range/Units 20:20 20:20 20:20 WBC 9.2 (3.8-10.6) k/uL RBC 4.75 (3.80-5.40) m/uL Hgb 14.2 (11.4-16.0) gm/dL Hct 43.0 (34.0-46.0) % MCV 90.4 (80.0-100.0) fL MCH 29.8 (25.0-35.0) pg MCHC 32.9 (31.0-37.0) g/dL RDW 14.3 (11.5-15.5) % Plt Count 407 (150-450) k/uL Neutrophils % 89 % Lymphocytes % 5 % Monocytes % 3 % Eosinophils % 2 % Basophils % 1 % Neutrophils # 8.2 H (1.3-7.7) k/uL Lymphocytes # 0.5 L (1.0-4.8) k/uL Monocytes # 0.3 (0-1.0) k/uL Eosinophils # 0.2 (0-0.7) k/uL Basophils # 0.1 (0-0.2) k/uL PT (9.0-12.0) sec INR (<1.1) APTT (22.0-30.0) sec Sodium 138 (137-145) mmol/L Potassium 3.7 (3.5-5.1) mmol/L Chloride 106 (98-107) mmol/L Carbon Dioxide 21 L (22-30) mmol/L Anion Gap 11 mmol/L BUN 10 (7-17) mg/dL Creatinine 0.65 (0.52-1.04) mg/dL Est GFR (MDRD) Af Amer >60 (>60 ml/min/1.73 sqM) Est GFR (MDRD) Non-Af >60 (>60 ml/min/1.73 sqM) Glucose 114 H (74-99) mg/dL Plasma Lactic Acid [place] (0.7-2.0) mmol/L Calcium 8.8 (8.4-10.2) mg/dL Total Bilirubin 0.9 (0.2-1.3) mg/dL AST 24 (14-36) U/L ALT 36 (9-52) U/L Alkaline Phosphatase 72 (38-126) U/L Total Protein 7.1 (6.3-8.2) g/dL Albumin 4.3 (3.5-5.0) g/dL Amylase 39 (30-110) U/L Lipase 68 (23-300) U/L Urine Color Yellow Urine Appearance Cloudy H (Clear) Urine pH 6.0 (5.0-8.0) Ur Specific [place] 1.022 (1.001-1.035) Urine Protein Trace H (Negative) Urine Glucose (UA) Negative (Negative) Urine Ketones 1+ H (Negative) Urine Blood Trace H (Negative) Urine Nitrite Negative (Negative) Urine Bilirubin Negative (Negative) Urine Urobilinogen <2.0 (<2.0) mg/dL Ur Leukocyte Esterase Negative (Negative) Urine RBC 1 (0-5) /hpf Urine WBC 1 (0-5) /hpf Ur Squamous Epith Cells 9 H (0-4) /hpf Urine Bacteria Rare H (None) /hpf Urine Mucus Rare H (None) /hpf Urine HCG, Qual (Not Detectd) 03/15/17 03/15/17 03/15/17 Range/Units 20:20 20:20 20:20 WBC (3.8-10.6) k/uL RBC (3.80-5.40) m/uL Hgb (11.4-16.0) gm/dL Hct (34.0-46.0) % MCV (80.0-100.0) fL MCH (25.0-35.0) pg MCHC (31.0-37.0) g/dL RDW (11.5-15.5) % Plt Count (150-450) k/uL Neutrophils % % Lymphocytes % % Monocytes % % Eosinophils % % Basophils % % Neutrophils # (1.3-7.7) k/uL Lymphocytes # (1.0-4.8) k/uL Monocytes # (0-1.0) k/uL Eosinophils # (0-0.7) k/uL Basophils # (0-0.2) k/uL PT 10.0 (9.0-12.0) sec INR 1.0 (<1.1) APTT 24.3 (22.0-30.0) sec Sodium (137-145) mmol/L Potassium (3.5-5.1) mmol/L Chloride (98-107) mmol/L Carbon Dioxide (22-30) mmol/L Anion Gap mmol/L BUN (7-17) mg/dL Creatinine (0.52-1.04) mg/dL Est GFR (MDRD) Af Amer (>60 ml/min/1.73 sqM) Est GFR (MDRD) Non-Af (>60 ml/min/1.73 sqM) Glucose (74-99) mg/dL Plasma Lactic Acid [place] 1.4 (0.7-2.0) mmol/L Calcium (8.4-10.2) mg/dL Total Bilirubin (0.2-1.3) mg/dL AST (14-36) U/L ALT (9-52) U/L Alkaline Phosphatase (38-126) U/L Total Protein (6.3-8.2) g/dL Albumin (3.5-5.0) g/dL Amylase (30-110) U/L Lipase (23-300) U/L Urine Color Urine Appearance (Clear) Urine pH (5.0-8.0) Ur Specific [place] (1.001-1.035) Urine Protein (Negative) Urine Glucose (UA) (Negative) Urine Ketones (Negative) Urine Blood (Negative) Urine Nitrite (Negative) Urine Bilirubin (Negative) Urine Urobilinogen (<2.0) mg/dL Ur Leukocyte Esterase (Negative) Urine RBC (0-5) /hpf Urine WBC (0-5) /hpf Ur Squamous Epith Cells (0-4) /hpf Urine Bacteria (None) /hpf Urine Mucus (None) /hpf Urine HCG, Qual Not Detected (Not Detectd) Disposition Clinical Impression: Abdominal pain, Colitis, Diverticulosis, History of resection of large bowel, Nausea and vomiting, Sinus tachycardia, Fever Disposition: ADMITTED IP TO THIS [facility] Condition: Fair Referrals: Marcia Canales MD [Primary Care Provider] - 1-2 days Time of Disposition: 22:03
[2017-03-15] MEDS ORDERED: metroNIDAZOLE-NS PMX 500 MG in SALINE 1 100ML.BAG IVPB STA (22:03)
[2017-03-15] MEDS ORDERED: NALOXONE 0.4 MG/ML 1 ML VIAL IV PRN (22:05)
[2017-03-15] MEDS ORDERED: ACETAMINOPHEN TAB 325 MG TAB PO PRN (22:05)
[2017-03-15] MEDS: METOCLOPRAMIDE 5 MG/ML 2 ML VIAL IVP SCH (23:37)
[2017-03-15] MEDS: HYDROmorphone 1 MG/ML 1 ML SYRINGE IV PRN (23:37)
[2017-03-16] MEDS: METOCLOPRAMIDE 5 MG/ML 2 ML VIAL IVP SCH ×4 (05:25→21:49)
[2017-03-16] MEDS: ONDANSETRON 4 MG/2 ML VIAL IVP PRN ×2 (06:17→11:16)
[2017-03-16] MEDS: ENOXAPARIN 40 MG/0.4 ML SYRINGE SQ SCH (08:30)
[2017-03-16] MEDS: FLUoxetine HCL 10 MG CAP PO SCH ×2 (08:30→21:49)
[2017-03-16] MEDS: HYDROmorphone 1 MG/ML 1 ML SYRINGE IV PRN ×4 (08:31→21:49)
[2017-03-16] MEDS ORDERED: PANTOPRAZOLE 40 MG/10 ML VIAL IV SCH (09:00)
--- NOTE | 2017-03-16 12:26 | P.GSCN ---
History of Present Illness Consult date: 03/16/17 Reason for Consult: Nausea, vomiting, diarrhea History of present illness: A 36-year-old female well-known to myself. Patient underwent recent low anterior resection for diverticulitis. Patient has complaints of nausea vomiting diarrhea prior to admission. Generally CAT scan which shows some mild thickening of her sigmoid colon. It is unclear if this is due to her recent surgery. Patient states that she feels slightly better today. Past Medical History Additional Past Medical History / Comment(s): rib fx, palpitations, previous hx. acute diverticulitis, right sided abd. pain, pain w/eating, tx. in November w/ antibiotics History of Any Multi-Drug Resistant Organisms: None Reported Past Surgical History: Section, Cholecystectomy Additional Past Surgical History / Comment(s): right lower bowel resection Past Anesthesia/Blood Transfusion Reactions: No Reported Reaction Past Psychological History: No Psychological Hx Reported Smoking Status: Never smoker Past Alcohol Use History: Rare Past Drug Use History: None Reported - Past Family History Father Family Medical History: Unable to Obtain Mother Family Medical History: Unable to Obtain Medications and Allergies Home Medications Medication Instructions Recorded Confirmed Type FLUoxetine HCL [PROzac] 10 mg PO BID 12/11/16 03/15/17 History Ondansetron HCl [Zofran] 4 mg PO Q8HR PRN 01/30/17 03/15/17 History traMADol HCL [Ultram] 50 mg PO Q4HR PRN 03/15/17 03/15/17 History Allergies Allergy/AdvReac Type Severity Reaction Status Date / Time diclofenac sodium Allergy Unknown Verified 03/15/17 21:39 [From Arthrotec] misoprostol [From Arthrotec] Allergy Unknown Verified 03/15/17 21:39 pomegranate Allergy tongue numb Verified 03/15/17 21:39 Surgical - Exam Vital Signs Temp Pulse Resp BP Pulse Ox 100.9 F H 122 H 20 126/72 97 03/15/17 19:55 03/15/17 19:55 03/15/17 19:55 03/15/17 19:55 03/15/17 19:55 - General well developed, no distress - Eyes PERRL - ENT normal pinna - Respiratory normal expansion - Cardiovascular Rhythm: regular - Abdomen Healing old midline incision. Abdomen: soft, non tender Results - Labs 03/15/17 20:20 03/15/17 20:20 Abnormal Lab Results - Last 24 Hours (Table) 03/15/17 03/15/17 03/15/17 Range/Units 20:20 20:20 20:20 Neutrophils # 8.2 H (1.3-7.7) k/uL Lymphocytes # 0.5 L (1.0-4.8) k/uL Carbon Dioxide 21 L (22-30) mmol/L Glucose 114 H (74-99) mg/dL Urine Appearance Cloudy H (Clear) Urine Protein Trace H (Negative) Urine Ketones 1+ H (Negative) Urine Blood Trace H (Negative) Ur Squamous Epith Cells 9 H (0-4) /hpf Urine Bacteria Rare H (None) /hpf Urine Mucus Rare H (None) /hpf Diabetes panel 03/15/17 Range/Units 20:20 Sodium 138 (137-145) mmol/L Potassium 3.7 (3.5-5.1) mmol/L Chloride 106 (98-107) mmol/L Carbon Dioxide 21 L (22-30) mmol/L BUN 10 (7-17) mg/dL Creatinine 0.65 (0.52-1.04) mg/dL Glucose 114 H (74-99) mg/dL Calcium 8.8 (8.4-10.2) mg/dL AST 24 (14-36) U/L ALT 36 (9-52) U/L Alkaline Phosphatase 72 (38-126) U/L Total Protein 7.1 (6.3-8.2) g/dL Albumin 4.3 (3.5-5.0) g/dL Calcium panel 03/15/17 Range/Units 20:20 Calcium 8.8 (8.4-10.2) mg/dL Albumin 4.3 (3.5-5.0) g/dL Pituitary panel 03/15/17 Range/Units 20:20 Sodium 138 (137-145) mmol/L Potassium 3.7 (3.5-5.1) mmol/L Chloride 106 (98-107) mmol/L Carbon Dioxide 21 L (22-30) mmol/L BUN 10 (7-17) mg/dL Creatinine 0.65 (0.52-1.04) mg/dL Glucose 114 H (74-99) mg/dL Calcium 8.8 (8.4-10.2) mg/dL Adrenal panel 03/15/17 Range/Units 20:20 Sodium 138 (137-145) mmol/L Potassium 3.7 (3.5-5.1) mmol/L Chloride 106 (98-107) mmol/L Carbon Dioxide 21 L (22-30) mmol/L BUN 10 (7-17) mg/dL Creatinine 0.65 (0.52-1.04) mg/dL Glucose 114 H (74-99) mg/dL Calcium 8.8 (8.4-10.2) mg/dL Total Bilirubin 0.9 (0.2-1.3) mg/dL AST 24 (14-36) U/L ALT 36 (9-52) U/L Alkaline Phosphatase 72 (38-126) U/L Total Protein 7.1 (6.3-8.2) g/dL Albumin 4.3 (3.5-5.0) g/dL Assessment and Plan Plan: Probable gastritis. The patient is feeling better. She will hopefully be discharged home the next 24-48 hours. The inflammation seen on CAT scan is most likely due to her postop surgical changes.
--- NOTE | 2017-03-16 14:02 | P.CONS ---
History of Present Illness - Reason for Consult Consult date: 03/16/17 Medical management Requesting physician: Juanito Smith - Chief Complaint Abdominal pain with vomiting and diarrhea - History of Present Illness This is a 36-year-old female with a known past medical history of recent lower anterior resection in January 2017 for diverticulitis. She also has a history of depression and chronic back pain. She reports she started having abdominal pain with vomiting and diarrhea that started 2 days ago. She reports having a low-grade temp at home. She did have a temp of 100.9 on admission. Computed tomography scan of the abdomen and pelvis showed colonic wall thickening correlate for colitis. Bilateral ovarian cysts are suspected. Normal appendix. Minimal free fluid in the pelvis may be physiologic. Patient was started on IV Flagyl. Admitted to surgical service. We've been requested for medical management. Stool for occult blood was negative stool for C. diff negative. She's been started on a clear liquid diet. The vomiting and diarrhea have resided. However, she still having some mild abdominal discomfort. The findings on CAT scan per surgeon were likely postop changes due to her recent lower anterior resection. And is felt likely that her symptoms are related to a gastritis. Patient denies any chills or sweats. Denies any chest pain or shortness of breath. Denies any blood in the stool or emesis. And his been urinating without difficulty. Review of Systems Please refer to HPI otherwise unremarkable Past Medical History Additional Past Medical History / Comment(s): rib fx, palpitations, previous hx. acute diverticulitis, right sided abd. pain, pain w/eating, tx. in November w/ antibiotics History of Any Multi-Drug Resistant Organisms: None Reported Past Surgical History: Section, Cholecystectomy Additional Past Surgical History / Comment(s): right lower bowel resection Past Anesthesia/Blood Transfusion Reactions: No Reported Reaction Past Psychological History: No Psychological Hx Reported Smoking Status: Never smoker Past Alcohol Use History: Rare Past Drug Use History: None Reported - Past Family History Father Family Medical History: Unable to Obtain Mother Family Medical History: Unable to Obtain Medications and Allergies Home Medications Medication Instructions Recorded Confirmed Type FLUoxetine HCL [PROzac] 10 mg PO BID 12/11/16 03/15/17 History Ondansetron HCl [Zofran] 4 mg PO Q8HR PRN 01/30/17 03/15/17 History traMADol HCL [Ultram] 50 mg PO Q4HR PRN 03/15/17 03/15/17 History Allergies Allergy/AdvReac Type Severity Reaction Status Date / Time diclofenac sodium Allergy Unknown Verified 03/15/17 21:39 [From Arthrotec] misoprostol [From Arthrotec] Allergy Unknown Verified 03/15/17 21:39 pomegranate Allergy tongue numb Verified 03/15/17 21:39 Physical Exam Vitals: Vital Signs Temp Pulse Pulse Resp BP BP Pulse Ox 03/16/17 07:57 113/64 03/16/17 07:00 99.2 F 87 19 96 03/15/17 23:00 98.4 F 84 16 112/60 96 03/15/17 22:08 99.9 F H 80 18 116/63 96 03/15/17 21:21 99.3 F 94 18 116/63 95 03/15/17 19:55 100.9 F H 122 H 20 126/72 97 Intake and Output 03/15/17 03/16/17 03/16/17 22:59 06:59 14:59 Intake Total 2098 Balance 2098 Intake: Intake, IV Titration 2098 Amount ACETAMINOPHEN IV (For NPO 400 ) 1,000 mg In Empty Bag 1 bag @ 400 mls/hr IVPB ONCE ONE Rx#:[id number] Sodium Chloride 0.9% 1, 600 000 ml @ 100 mls/hr IV . Q10H STA Rx#:[id number] Sodium Chloride 0.9% 1, 999 000 ml @ 999 mls/hr IV . Q1H1M STA Rx#:[id number] metroNIDAZOLE-NS PMX 500 100 mg In Saline 1 100ml.bag @ 100 mls/hr IVPB ONCE STA Rx#:[id number] Other: Voiding Method Toilet Weight 81.647 kg 89 kg Head normocephalic Neck supple Lungs clear to auscultation bilaterally no wheezing or crackles Heart regular rate and rhythm S1-S2, no rub or gallop Abdomen is soft nondistended tender around incision site. However incision is clean dry and intact healing nicely Extremities no edema Neuro alert and orientated to 3 Results CBC & Chem 7: 03/15/17 20:20 03/15/17 20:20 Labs: Abnormal Lab Results - Last 24 Hours (Table) 06/03/15/17 03/15/17 Range/Units 20:20 20:20 20:20 Neutrophils # 8.2 H (1.3-7.7) k/uL Lymphocytes # 0.5 L (1.0-4.8) k/uL Carbon Dioxide 21 L (22-30) mmol/L Glucose 114 H (74-99) mg/dL Urine Appearance Cloudy H (Clear) Urine Protein Trace H (Negative) Urine Ketones 1+ H (Negative) Urine Blood Trace H (Negative) Ur Squamous Epith Cells 9 H (0-4) /hpf Urine Bacteria Rare H (None) /hpf Urine Mucus Rare H (None) /hpf Assessment and Plan Plan: 1. Abdominal pain with CAT scan revealing colonic wall thickening which could possibly related to colitis. Admitted to surgical service who felt changes were likely postop changes. Continue to monitor continue with pain medication. Currently on Flagyl. And she is on a clear liquid diet. 2. Possible gastroenteritis. Continue to monitor. Continue Zofran as needed. Stool for C. diff was negative. Stool for occult blood negative. 3. Low-grade temp of 100.9. White count is 9.2. Possibly related to a gastroenteritis. Continue to monitor. Blood culture pending. 4. History of diverticulitis with recent lower anterior resection in January 2017 5. Depression continue Prozac 6. GI prophylaxis Protonix and DVT prophylaxis Lovenox Thank you for this consultation. We will continue to follow along with you. Check routine labs in the morning Time with Patient: Greater than 30 (Greater than 50% of the total time spent in counseling and coordination of care.I performed an examination of the patient and discussed their management with the physician Cisco Consultant. I have reviewed the Physician Cisco Consultant's notes and agree with the documented findings and plan of care)
[2017-03-17] MEDS: HYDROmorphone 1 MG/ML 1 ML SYRINGE IV PRN ×2 (00:44→21:35)
[2017-03-17] MEDS: METOCLOPRAMIDE 5 MG/ML 2 ML VIAL IVP SCH ×3 (03:24→17:19)
[2017-03-17] MEDS: HYDROcodone/APAP 5-325MG 1 EACH TAB PO PRN ×3 (03:58→17:20)
[2017-03-17 07:38] LABS: Basophils % (A) 1 %; CH 29.9; CHCM 32.9; Eosinophils # (A) 0.3 k/uL (0-0.7); Eosinophils % (A) 6 %; HCT 35.9 % (34.0-46.0); HDW 2.49; Luc # (Auto) 0.09; Luc % (Auto) 2; Lymphocytes # (A) 1.8 k/uL (1.0-4.8); Lymphocytes % (A) 40 %; MCH 30.6 pg (25.0-35.0); MCHC 33.5 g/dL (31.0-37.0); MCV 91.4 fL (80.0-100.0); Mean Platelet Volume 7.4; Monocytes # (A) 0.4 k/uL (0-1.0); Monocytes % (A) 8 %; Neutrophils # (A) 2.1 k/uL (1.3-7.7); Neutrophils % (A) 44 %; RBC 3.93 m/uL (3.80-5.40); WBC 4.7 k/uL (3.8-10.6); WBC (Perox) 4.62
[2017-03-17] MEDS: PANTOPRAZOLE 40 MG TABLET PO SCH (07:48)
[2017-03-17] MEDS: ENOXAPARIN 40 MG/0.4 ML SYRINGE SQ SCH (07:48)
[2017-03-17] MEDS: FLUoxetine HCL 10 MG CAP PO SCH ×2 (07:48→21:35)
[2017-03-17 08:07] LABS: ALT 261 U/L (9-52); AST 291 U/L (14-36); Alkaline Phosphatase 121 U/L (38-126); Anion Gap 9 mmol/L; Blood Urea Nitrogen 3 mg/dL (7-17); Calcium 8.1 mg/dL (8.4-10.2); Carbon Dioxide 23 mmol/L (22-30); Chloride 108 mmol/L (98-107); Glucose 89 mg/dL (74-99); Non-African American GFR(MDRD) >60 (>60 ml/min/1.73 sqM); Potassium 3.5 mmol/L (3.5-5.1); Sodium 140 mmol/L (137-145); Total Bilirubin 0.7 mg/dL (0.2-1.3); Total Protein 5.5 g/dL (6.3-8.2)
--- NOTE | 2017-03-17 08:40 | P.PN ---
Subjective 36-year-old female being seen and examined this morning resting in bed states abdominal pain has improved. Patient reports no nausea vomiting. States her last bowel movement was the last night Patient has a history of a recent low anterior resection for diverticulitis. CAT scan done this admission showed mild thickening of sigmoid colon. Surgery feels the CAT scan findings are likely postop surgical changes patient has been afebrile with a white counts this morning of 4.7 hemoglobin stable at 12 electrolytes within normal limits on admission the temp was 100.9 Objective - Vital Signs Vital signs: Vital Signs Temp 98.3 F 03/17/17 07:00 Pulse 61 03/17/17 07:00 Resp 14 03/17/17 07:00 BP 102/44 03/17/17 07:00 Pulse Ox 97 03/17/17 07:00 Intake & Output 03/16/17 03/17/17 03/17/17 18:59 06:59 18:59 Intake Total 800 Balance 800 Intake: Oral 800 Other: # Voids 1 2 # Bowel Movements 1 - Exam GENERAL APPEARANCE: The patient is alert, oriented, in no acute distress. Resting comfortably in bed states pain medication effective for pain control VITAL SIGNS: Reviewed HEENT: Head is normocephalic and atraumatic. Pupils are equal and reactive. The nares are patent. Oropharynx is clear without lesions. NECK: Supple without lymphadenopathy. Traches midline. HEART: S1, S2. Regular rate and rhythm. LUNGS: No crackles or wheezes are heard. ABDOMEN: Soft, nontender, nondistended with good bowel sounds. No peritoneal signs. No palpable organomegaly or masses. Surgical incision well approximated no redness reports the nausea vomiting reports 1 stool last night EXTREMITIES: Normal skin color and turgor. No cyanosis, rash, ulceration, clubbing or edema. Radial pedal pulses are 2/4 bilaterally. NEUROLOGICAL: No focal deficits. Strength and sensation are grossly intact. - Labs CBC & Chem 7: 03/17/17 07:23 03/17/17 07:23 Labs: Abnormal Lab Results - Last 24 Hours (Table) 03/17/17 Range/Units 07:23 Chloride 108 H (98-107) mmol/L BUN 3 L (7-17) mg/dL Calcium 8.1 L (8.4-10.2) mg/dL AST 291 H (14-36) U/L ALT 261 H (9-52) U/L Total Protein 5.5 L (6.3-8.2) g/dL Albumin 3.1 L (3.5-5.0) g/dL Microbiology - Last 24 Hours (Table) 03/15/17 20:20 Blood Culture - Preliminary Blood No Growth after 24 hours 03/15/17 08:16 Stool for WBCs - Final Stool 03/15/17 08:16 Stool Culture - Preliminary Stool Assessment and Plan Plan: Impression Present on admission abdominal pain febrile temp 100.9 with a white count 9.2 possible gastroenteritis History of diverticulitis A recent low anterior resection for diverticulitis Depressive disorder nonspecified Present on admission abdominal pain CAT scan of the abdomen pelvis shows mild thickening sigmoid colon suspect due to postop surgical changes Plan Continue with recommendations by surgical service IV fluid for hydration DVT and GI prophylaxis Pain control Advance diet per surgical services recommendations Follow-up on pending blood cultures and stool cultures currently negative The above dictated assessment and findings were discussed with dr otero Impression and the plan of care have been dictated as directed. Jazmine Mulligan nurse practitioner acting as a scribe for dr otero
[2017-03-17] MEDS ORDERED: POTASSIUM CHLORIDE ER 20 MEQ TAB.ER PO STA (08:44)
--- NOTE | 2017-03-17 09:52 | P.PN ---
Progress Note - Text The patient states she feels a little better today. Still has some lower abdominal discomfort now. She feels hungry for more substantial food. However occasional [place] yet. Her graft she is almost 2 weeks post low anterior resection for complicated diverticular disease. On examination the patient is awake alert in no acute distress. Normal vitals are stable. Abdomen is soft with mild tenderness across the lower abdomen suprapubic area but no guarding or rebound no mass or organomegaly noted. CT showed no evidence of an abscess or any complicating features usual thickening of the colon around the anastomotic area. Impression. Lower abdominal pain improving. Not sure as to the etiology. No evidence of any leak at the anastomosis. Recommendation. We will advance her diet and see how she tolerates this. Continue IV antibiotics.
[2017-03-17] MEDS: ONDANSETRON 4 MG/2 ML VIAL IVP PRN (12:24)
--- NOTE | 2017-03-17 23:23 | P.CONS ---
History of Present Illness - Reason for Consult Consult date: 03/17/17 - History of Present Illness The patient is a 36-year-old female who was admitted to the hospital with abdominal pain and vomiting. CT of the abdomen showed thickening of the bowel wall. We are asked to see her for consideration of colitis. The patient had segmental resection for diverticulitis early last month. She apparently had colonoscopy prior to her surgery and no evidence of colitis was seen. Surgery evaluated at this admission and the impression was that the CT findings could be related to her recent surgery. The patient denied any hematemesis or hematochezia. No dysphagia, or odynophagia. Stools negative for C difficile toxin. Review of Systems Constitutional: Denied fever, chills or any unintentional weight loss Neurologic: No headaches, double vision or any new sensory or motor changes Cardiopulmonary: Denied any chest pains, shortness of breath or palpitations Gastrointestinal: See present illness above Endocrine: Denied diabetes or thyroid disease. Genitourinary: No hematuria, dysuria or frequency Skin: No rashes Musculoskeletal: No joint pains or swelling Psychiatric: Has history of depression Past Medical History Additional Past Medical History / Comment(s): rib fx, palpitations, previous hx. acute diverticulitis, right sided abd. pain, pain w/eating, tx. in November w/ antibiotics History of Any Multi-Drug Resistant Organisms: None Reported Past Surgical History: Section, Cholecystectomy Additional Past Surgical History / Comment(s): right lower bowel resection Past Anesthesia/Blood Transfusion Reactions: No Reported Reaction Past Psychological History: No Psychological Hx Reported Smoking Status: Never smoker Past Alcohol Use History: Rare Past Drug Use History: None Reported - Past Family History Father Family Medical History: Unable to Obtain Mother Family Medical History: Unable to Obtain Medications and Allergies Home Medications Medication Instructions Recorded Confirmed Type FLUoxetine HCL [PROzac] 10 mg PO BID 12/11/16 03/15/17 History Ondansetron HCl [Zofran] 4 mg PO Q8HR PRN 01/30/17 03/15/17 History traMADol HCL [Ultram] 50 mg PO Q4HR PRN 03/15/17 03/15/17 History Allergies Allergy/AdvReac Type Severity Reaction Status Date / Time diclofenac sodium Allergy Unknown Verified 03/15/17 21:39 [From Arthrotec] misoprostol [From Arthrotec] Allergy Unknown Verified 03/15/17 21:39 pomegranate Allergy tongue numb Verified 03/15/17 21:39 Physical Exam Vitals: Vital Signs Temp Pulse Resp BP Pulse Ox 03/17/17 07:00 98.3 F 61 14 102/44 97 03/16/17 23:00 98.7 F 64 18 118/69 98 03/16/17 15:00 97.9 F 65 20 98/40 96 Intake and Output 03/16/17 03/17/17 03/17/17 22:59 06:59 14:59 Intake Total 450 350 Balance 450 350 Intake: Oral 450 350 Other: Voiding Method Toilet # Voids 2 2 # Bowel Movements 1 General: Appeared stated age, very pleasant in no acute distress Head and neck: Normocephalic and atraumatic. Conjunctivae pink and sclerae not icteric. Mucous membranes moist and pink. No masses in the neck or tracheal shifts Lungs: Clear to auscultation with no dullness to percussion Heart: Regular, no abnormal sounds, murmurs, gallops or friction rubs Abdomen: Soft, no masses or organomegalies. No tenderness. Bowel sounds present Extremities: No clubbing, cyanosis or edema Neurologic: Alert and oriented 3. Cranial nerves grossly intact. No gross sensory or motor abnormalities Results CBC & Chem 7: 03/17/17 07:23 03/17/17 07:23 Labs: Abnormal Lab Results - Last 24 Hours (Table) 03/17/17 Range/Units 07:23 Chloride 108 H (98-107) mmol/L BUN 3 L (7-17) mg/dL Calcium 8.1 L (8.4-10.2) mg/dL AST 291 H (14-36) U/L ALT 261 H (9-52) U/L Total Protein 5.5 L (6.3-8.2) g/dL Albumin 3.1 L (3.5-5.0) g/dL Microbiology - Last 24 Hours (Table) 03/15/17 20:20 Blood Culture - Preliminary Blood No Growth after 24 hours 03/15/17 08:16 Stool for WBCs - Final Stool 03/15/17 08:16 Stool Culture - Preliminary Stool Assessment and Plan Plan: 36-year-old female with a picture of gastritis/gastroenteritis. Doubt that we are dealing with nonspecific inflammatory bowel disease such as ulcerative colitis or Crohn's colitis based on her presentation and above findings. The patient had colonoscopy last month. Since the patient is improving, we'll continue supportive measures like you are doing and monitor her course closely. I did not schedule for any additional studies at this time. We'll continue to follow with you with interest.
[2017-03-18] MEDS: METOCLOPRAMIDE 5 MG/ML 2 ML VIAL IVP SCH ×3 (00:03→09:58)
[2017-03-18 07:31] VITALS: BP 100/55; PULSE 66; RESP 20; TEMP 98.7
--- NOTE | 2017-03-18 08:40 | P.PN ---
Subjective 36-year-old female seen and examined this morning currently resting in bed. Patient reports abdominal pain significantly improved this morning. Patient states one small stool last night. Patient states tolerating her diet yesterday "anxious to go home". This is a 36-year-old female who was admitted to the hospital with a chief complaint of abdominal pain with nausea vomiting. Had a CAT scan done of the abdomen that showed thickening of the bowel wall. [place] to be due to surgical changes The stool for C. diff was negative. Patient has not had any hematemesis or any blood noted in the stool. Patient did have a resection for diverticulitis earlier in the month. Prior to her surgery apparently underwent a colonoscopy which showed no evidence of colitis. Patient has been seen by surgical service as well as GI service Dr. Nguyen did see the patient on consultation on the recommending continue supportive measures. No plan to schedule any additional studies at this time Objective - Vital Signs Vital signs: Vital Signs Temp 98.7 F 03/18/17 07:00 Pulse 66 03/18/17 07:00 Resp 20 03/18/17 07:00 BP 100/55 03/18/17 07:00 Pulse Ox 100 03/18/17 07:00 Intake & Output 03/17/17 03/18/17 03/18/17 18:59 06:59 18:59 Intake Total 750 Balance 750 Intake: Oral 750 Other: Voiding Method Toilet # Voids 1 2 # Bowel Movements 0 - Exam GENERAL APPEARANCE: The patient is alert, oriented, in no acute distress. Resting comfortably in bed states pain medication effective for pain control states tolerated a diet yesterday "I'm hungry significant improvement in the abdominal pain with no reports of nausea vomiting VITAL SIGNS: Reviewed HEENT: Head is normocephalic and atraumatic. Pupils are equal and reactive. The nares are patent. Oropharynx is clear without lesions. NECK: Supple without lymphadenopathy. Traches midline. HEART: S1, S2. Regular rate and rhythm. Denying any chest pain LUNGS: No crackles or wheezes are heard. On room air no shortness of breath ABDOMEN: Soft, nontender, nondistended with good bowel sounds. No peritoneal signs. No palpable organomegaly or masses. Surgical incision well approximated no redness reports nausea sensation resolved no further emesis no frequent stooling EXTREMITIES: Normal skin color and turgor. No edema noted - Labs CBC & Chem 7: 03/17/17 07:23 03/17/17 07:23 Labs: Microbiology - Last 24 Hours (Table) 03/15/17 20:20 Blood Culture - Preliminary Blood No Growth after 48 hours Assessment and Plan Plan: Impression Present on admission abdominal pain febrile temp 100.9 with a white count 9.2 possible gastroenteritis resolved remained afebrile temp this morning 98.7 History of diverticulitis A recent low anterior resection for diverticulitis Depressive disorder nonspecified Electrolyte morality hypokalemia Present on admission abdominal pain CAT scan of the abdomen pelvis shows mild thickening sigmoid colon suspect due to postop surgical changes Stool culture negative blood culture negative Plan Continue with recommendations by surgical service IV fluid for hydration DVT and GI prophylaxis Pain control Advance diet per surgical services recommendations The above dictated assessment and findings were discussed with dr branden Wheeler and the plan of care have been dictated as directed. Jazmine Mulligan nurse practitioner acting as a scribe for dr otero
[2017-03-18 09:02] LABS: Basophils % (A) 1 %; CHCM 33.4; Eosinophils # (A) 0.1 k/uL (0-0.7); Eosinophils % (A) 2 %; HCT 39.3 % (34.0-46.0); HDW 2.45; HGB 12.6 gm/dL (11.4-16.0); Luc % (Auto) 2; Lymphocytes # (A) 1.3 k/uL (1.0-4.8); Lymphocytes % (A) 25 %; MCHC 32.1 g/dL (31.0-37.0); MCV 90.2 fL (80.0-100.0); Mean Platelet Volume 7.6; Monocytes # (A) 0.3 k/uL (0-1.0); Monocytes % (A) 5 %; Neutrophils # (A) 3.3 k/uL (1.3-7.7); Neutrophils % (A) 65 %; RBC 4.36 m/uL (3.80-5.40); RDW 14.1 % (11.5-15.5); WBC 5.1 k/uL (3.8-10.6); WBC (Perox) 5.13
[2017-03-18 09:08] LABS: ALT 202 U/L (9-52); AST 114 U/L (14-36); Alkaline Phosphatase 120 U/L (38-126); Anion Gap 9 mmol/L; Blood Urea Nitrogen 5 mg/dL (7-17); Carbon Dioxide 26 mmol/L (22-30); Chloride 105 mmol/L (98-107); Glucose 98 mg/dL (74-99); Non-African American GFR(MDRD) >60 (>60 ml/min/1.73 sqM); Sodium 140 mmol/L (137-145); Total Bilirubin 0.4 mg/dL (0.2-1.3); Total Protein 6.1 g/dL (6.3-8.2)
[2017-03-18] MEDS: FLUoxetine HCL 10 MG CAP PO SCH (09:59)
[2017-03-18] MEDS: ENOXAPARIN 40 MG/0.4 ML SYRINGE SQ SCH (09:59)
[2017-03-18] MEDS: PANTOPRAZOLE 40 MG TABLET PO SCH (09:59)
--- NOTE | 2017-03-18 10:15 | P.PN ---
Progress Note - Text The patient is doing much better. She tolerated a lunch and dinner of soft diet the yesterday. Hasn't had breakfast yet. No nausea or vomiting. No diarrhea. Had a soft bowel movement yesterday. On examination she is afebrile. Vitals are stable. She is in no distress. Quite cheerful. Anxious to go home. Her abdomen is quite soft. Well-healed midline scar. No evidence of infection. No tenderness. Impression resolved lower abdominal pain formation around her anastomotic site now resolved. Recommendation. Patient can be discharged from a surgical standpoint. Has an appointment to follow-up with and 3-4 days. Already has postop the pain meds.
[2017-03-18] MEDS: HYDROcodone/APAP 5-325MG 1 EACH TAB PO PRN (10:38)
== END 2017-03-18 11:21 | disposition home or self-care (01) | DRG 392 ==
LOC: EC 19:47 → 4MS4W 22:05
PROVIDERS: ADMIT Surgery; ATTEND Surgery
DX: K29.70 Gastritis, unspecified, without bleeding (principal); F32.9 Major depressive disorder, single episode, unspecified; E87.6 Hypokalemia; N83.201 Unspecified ovarian cyst, right side; N83.202 Unspecified ovarian cyst, left side; G89.29 Other chronic pain; M54.9 Dorsalgia, unspecified; K52.9 Noninfective gastroenteritis and colitis, unspecified; K57.90 Diverticulosis of intestine, part unspecified, without perforation or abscess without bleeding; Z79.899 Other long term (current) drug therapy; Z88.8 Allergy status to other drugs, medicaments and biological substances
CPT/HCPCS: 36415; 74177; 80053; 81001; 81025; 82150; 82272; 83605; 83690; 85025; 85610; 85730; 87040; 87045; 87046; 87324; 89055; 96361; 96365; 96375; 99285

== ENCOUNTER 2018-02-22 18:24 | Emergency (ER) | payer OTHER ==
[2018-02-22] MEDS ORDERED: RX INFO: IV CONTRAST WAS GIVEN 1 EACH MISC MISCELLANE PRN (19:13)
[2018-02-22] MEDS ORDERED: KETOROLAC 30 MG/ML 1 ML VIAL IVP STA (19:13)
[2018-02-22] MEDS ORDERED: SODIUM CHLORIDE 0.9% 1,000 ML IV ONE (19:13)
[2018-02-22] MEDS ORDERED: ONDANSETRON 4 MG/2 ML VIAL IVP STA (19:13)
[2018-02-22] MEDS ORDERED: SODIUM CHLORIDE 0.9% 1,000 ML IV SCH (19:15)
--- NOTE | 2018-02-22 19:20 | ED ---
Abdominal Pain HPI - General Chief Complaint: Abdominal Pain Stated Complaint: Abd Pain Time Seen by Provider: 02/22/18 18:56 Source: patient, RN notes reviewed, old records reviewed Mode of arrival: ambulatory Limitations: no limitations - History of Present Illness Initial Comments: 29-year-old female presents emergency department with a chief complaint of right lower quadrant abdominal pain. She reports she's been having chills off and on. She is a nurse at [employer]. She states that she could not get comfortable work today. She does have history of diverticulitis with bowel resection. She had this in January of last year. Patient states over the past few days she has been eating more knots. Didn't she did have a bowel movement today. Reports no significant blood. It was darker than usual. Patient relates she had no vomiting. She does feel nauseated. She denies any chest pain, shortness of breath. - Related Data Home Medications Medication Instructions Recorded Confirmed FLUoxetine HCL [PROzac] 10 mg PO BID 12/11/16 02/22/18 Ondansetron HCl [Zofran] 4 mg PO Q8HR PRN 01/30/17 02/22/18 traMADol HCL [Ultram] 50 mg PO Q4HR PRN 03/15/17 02/22/18 Ibuprofen [Motrin Ib] 800 mg PO Q8H PRN 02/22/18 02/22/18 Previous Rx's Medication Instructions Recorded Acetaminophen with Codeine 1 tab PO Q4H PRN 3 Days #12 tab 02/22/18 [Tylenol w/codeine #3] Ciprofloxacin HCl [Cipro] 500 mg PO Q12HR 10 Days tab 02/22/18 Docusate [Colace] 100 mg PO DAILY #10 capsule 02/22/18 metroNIDAZOLE [Flagyl] 500 mg PO TID #30 tab 02/22/18 Allergies Allergy/AdvReac Type Severity Reaction Status Date / Time diclofenac sodium Allergy Unknown Verified 02/22/18 19:23 [From Arthrotec] misoprostol [From Arthrotec] Allergy Unknown Verified 02/22/18 19:23 pomegranate Allergy tongue numb Verified 02/22/18 19:23 Review of Systems ROS Statement: Those systems with pertinent positive or pertinent negative responses have been documented in the HPI. ROS Other: All systems not noted in ROS Statement are negative. Past Medical History Additional Past Medical History / Comment(s): rib fx, palpitations, previous hx. acute diverticulitis, right sided abd. pain, pain w/eating, tx. in November w/ antibiotics History of Any Multi-Drug Resistant Organisms: MRSA Date of last positivie culture/infection: 2011 MDRO Source:: left arm Past Surgical History: Bowel Resection, Section, Cholecystectomy Additional Past Surgical History / Comment(s): right lower bowel resection Past Anesthesia/Blood Transfusion Reactions: No Reported Reaction Past Psychological History: No Psychological Hx Reported Smoking Status: Never smoker Past Alcohol Use History: Rare Past Drug Use History: None Reported - Past Family History Father Family Medical History: Unable to Obtain Mother Family Medical History: Unable to Obtain General Exam - General Exam Comments Initial Comments: Well-appearing 2-year-old female. Alert and oriented. No acute distress. Limitations: no limitations General appearance: alert, in no apparent distress Head exam: Present: atraumatic, normocephalic, normal inspection Eye exam: Present: normal appearance, PERRL, EOMI. Absent: scleral icterus, conjunctival injection, periorbital swelling ENT exam: Present: normal exam, mucous membranes moist Neck exam: Present: normal inspection. Absent: tenderness, meningismus, lymphadenopathy Respiratory exam: Present: normal lung sounds bilaterally. Absent: respiratory distress, wheezes, rales, rhonchi, stridor Cardiovascular Exam: Present: regular rate, normal rhythm, normal heart sounds. Absent: systolic murmur, diastolic murmur, rubs, gallop, clicks GI/Abdominal exam: Present: soft, tenderness (RLQ pain), normal bowel sounds. Absent: distended, guarding, rebound, rigid Extremities exam: Present: normal inspection, full ROM, normal capillary refill. Absent: tenderness, pedal edema, joint swelling, calf tenderness Back exam: Present: normal inspection Neurological exam: Present: alert, oriented X3, CN II-XII intact Psychiatric exam: Present: normal affect, normal mood Skin exam: Present: warm, dry, intact, normal color. Absent: rash Course Vital Signs 02/22/18 02/22/18 18:42 20:45 Temperature 97.4 F L 97.8 F Pulse Rate 92 85 Respiratory 18 16 Rate Blood Pressure 124/63 118/73 O2 Sat by Pulse 98 99 Oximetry Medical Decision Making - Medical Decision Making 29-year-old female presents to the emergency department states she bled right lower quadrant abdominal pain history of bowel resections diverticulitis. Patient states the pain seems similar to her previous episodes. At this time patient's labwork was reviewed and unremarkable. Normal white blood cell count. Vital signs are stable. Does complain of severe pain requesting pain medicine. She is a nurse at [employer]. Patient CT abdomen and pelvis was completed. No evidence of any acute abnormalities. No obstructions. She does have enlarged diverticula. No mention of diverticulitis. Patient reported these results. I discussed with the enlarged diverticula, and with her history she is concerned. Due to this I will treat the Patient for mild diverticulitis. We'll put her on stool softeners. Discussed appropriate follow-up. Patient understood history plan will comply. Return parameters were discussed. - Lab Data Result diagrams: 02/22/18 19:24 02/22/18 19:24 Lab Results 02/22/18 02/22/18 02/22/18 Range/Units 19:24 19:24 19:24 WBC 9.5 (3.8-10.6) k/uL RBC 4.52 (3.80-5.40) m/uL Hgb 13.6 (11.4-16.0) gm/dL Hct 39.2 (34.0-46.0) % MCV 86.9 (80.0-100.0) fL MCH 30.1 (25.0-35.0) pg MCHC 34.6 (31.0-37.0) g/dL RDW 14.0 (11.5-15.5) % Plt Count 430 (150-450) k/uL Neutrophils % 70 % Lymphocytes % 21 % Monocytes % 5 % Eosinophils % 2 % Basophils % 1 % Neutrophils # 6.6 (1.3-7.7) k/uL Lymphocytes # 2.0 (1.0-4.8) k/uL Monocytes # 0.5 (0-1.0) k/uL Eosinophils # 0.2 (0-0.7) k/uL Basophils # 0.1 (0-0.2) k/uL Sodium 141 (137-145) mmol/L Potassium 4.3 (3.5-5.1) mmol/L Chloride 104 (98-107) mmol/L Carbon Dioxide 22 (22-30) mmol/L Anion Gap 15 mmol/L BUN 15 (7-17) mg/dL Creatinine 0.60 (0.52-1.04) mg/dL Est GFR (CKD-EPI)AfAm >90 (>60 ml/min/1.73 sqM) Est GFR (CKD-EPI)NonAf >90 (>60 ml/min/1.73 sqM) Glucose 85 (74-99) mg/dL Calcium 9.3 (8.4-10.2) mg/dL Total Bilirubin 0.5 (0.2-1.3) mg/dL AST 19 (14-36) U/L ALT 33 (9-52) U/L Alkaline Phosphatase 77 (38-126) U/L Total Protein 7.0 (6.3-8.2) g/dL Albumin 4.4 (3.5-5.0) g/dL Amylase 60 (30-110) U/L Lipase 83 (23-300) U/L Urine Color Yellow Urine Appearance Clear (Clear) Urine pH 5.5 (5.0-8.0) Ur Specific [place] 1.026 (1.001-1.035) Urine Protein Trace H (Negative) Urine Glucose (UA) Negative (Negative) Urine Ketones Negative (Negative) Urine Blood Negative (Negative) Urine Nitrite Negative (Negative) Urine Bilirubin Negative (Negative) Urine Urobilinogen <2.0 (<2.0) mg/dL Ur Leukocyte Esterase Trace H (Negative) Urine RBC 2 (0-5) /hpf Urine WBC 2 (0-5) /hpf Ur Squamous Epith Cells 6 H (0-4) /hpf Urine Bacteria Rare H (None) /hpf Urine Mucus Few H (None) /hpf - Radiology Data Radiology results: report reviewed Multiple ventral hernias new compared old CT. No evidence of bowel instruction. Multiple large bowel diverticula increased compared old CT. Disposition Clinical Impression: RLQ abdominal pain, Diverticula of colon Disposition: HOME SELF-CARE Condition: Good Instructions: Diverticulitis Diet (ED), Diverticulosis (ED) Additional Instructions: Patient denies follow-up with primary care provider. Return to emergency department if any alarming signs or symptoms occur. Use the medication as prescribed. Prescriptions: Acetaminophen with Codeine [Tylenol w/codeine #3] 1 tab PO Q4H PRN 3 Days #12 tab PRN Reason: Pain Ciprofloxacin HCl [Cipro] 500 mg PO Q12HR 10 Days tab Docusate [Colace] 100 mg PO DAILY #10 capsule metroNIDAZOLE [Flagyl] 500 mg PO TID #30 tab Is patient prescribed a controlled substance at d/c from ED?: Yes When asked, does pt state using other controlled substances?: No If prescribed controlled substance>3 days was MAPS reviewed?: Prescribed <3 Days If opioid is for acute pain is fill amount 7 days or less?: No If Rx opioid, was Start Talking consent form obtained?: No Referrals: Marcia Canales MD [Primary Care Provider] - 1-2 days Time of Disposition: 21:10
[2018-02-22 19:37] LABS: Basophils # (A) 0.1 k/uL (0-0.2); Basophils % (A) 1 %; Eosinophils # (A) 0.2 k/uL (0-0.7); Eosinophils % (A) 2 %; HCT 39.2 % (34.0-46.0); HGB 13.6 gm/dL (11.4-16.0); Lymphocytes % (A) 21 %; MCH 30.1 pg (25.0-35.0); MCHC 34.6 g/dL (31.0-37.0); MCV 86.9 fL (80.0-100.0); Mean Platelet Volume 6.9; Monocytes # (A) 0.5 k/uL (0-1.0); Monocytes % (A) 5 %; Neutrophils # (A) 6.6 k/uL (1.3-7.7); Neutrophils % (A) 70 %; Platelet Count 430 k/uL (150-450); RBC 4.52 m/uL (3.80-5.40); WBC 9.5 k/uL (3.8-10.6)
[2018-02-22 19:40] LABS: Appearance,Urine Clear (Clear); Bacteria,Urine Rare /hpf; Bilirubin,Urine Negative (Negative); Blood,Urine Negative (Negative); Color,Urine Yellow; Glucose,Urine (UA) Negative (Negative); Ketones,Urine Negative (Negative); Leukocyte Esterase,Urine Trace (Negative); Mucus,Urine Few /hpf; Nitrite,Urine Negative (Negative); PH, Urine 5.5 (5.0-8.0); Protein,Urine Trace (Negative); RBC,Urine 2 /hpf (0-5); Specific Gravity,Urine 1.026 (1.001-1.035); Squamous Epithelial Cell,Urine 6 /hpf (0-4); Urobilinogen,Urine <2.0 mg/dL (<2.0); WBC,Urine 2 /hpf (0-5)
[2018-02-22 19:49] LABS: ALT 33 U/L (9-52); AST 19 U/L (14-36); Albumin 4.4 g/dL (3.5-5.0); Alkaline Phosphatase 77 U/L (38-126); Amylase 60 U/L (30-110); Anion Gap 15 mmol/L; Blood Urea Nitrogen 15 mg/dL (7-17); Calcium 9.3 mg/dL (8.4-10.2); Carbon Dioxide 22 mmol/L (22-30); Chloride 104 mmol/L (98-107); Glucose 85 mg/dL (74-99); Lipase 83 U/L (23-300); Potassium 4.3 mmol/L (3.5-5.1); Sodium 141 mmol/L (137-145); Total Bilirubin 0.5 mg/dL (0.2-1.3)
[2018-02-22] MEDS ORDERED: MORPHINE SULFATE 4 MG/ML SYRINGE IVP STA (20:48)
[2018-02-22 20:49] VITALS: BP 118/73; PULSE 85; RESP 16; TEMP 97.8
--- NOTE | 2018-02-22 20:49 | CT ---
EXAMINATION TYPE: CT abdomen pelvis w con DATE OF EXAM: 02/22/2018 COMPARISON: 03/15/2017 HISTORY: Right lower quadrant pain, history of diverticulitis and bowel resection. CT DLP: 1772 mGycm Automated exposure control for dose reduction was used. TECHNIQUE: Helical acquisition of images was performed from the lung bases through the pelvis. CONTRAST: Performed without Oral Contrast and with IV Contrast, patient injected with 100 mL of Isovue 300. FINDINGS: Lung bases are clear. There is no pleural effusion. There is no pericardial effusion. Liver spleen pa ncreas appear normal. There are clips from cholecystectomy. There is no adrenal mass. Kidneys show satisfactory contrast opacification. There is no hydronephrosi s. There is no retroperitoneal adenopathy. There is no ascites. There is umbilical hernia that contai ns a loop of small bowel. There is no evidence of bowel obstruction. There is a lower abdominal ventr al hernia that contains a loop of small bowel. There is a third ventral hernia to the right of midlin e below the umbilicus. This also contains a loop of small bowel. There are numerous diverticula in th e colon. I see no sign of diverticulitis. There is no ascites. There is no sign of free air. There ar e mild spondylotic changes in the lumbar spine. IMPRESSION: THERE ARE MULTIPLE VENTRAL HERNIAS THAT APPEAR NEW COMPARED TO OLD CT SCAN. NO EVIDENCE OF BOWEL OBST RUCTION. THERE ARE MULTIPLE LARGE BOWEL DIVERTICULA THE APPEAR INCREASED COMPARED TO OLD CT SCAN.
== END 2018-02-22 21:48 | disposition home or self-care (01) ==
LOC: EC 18:24
DX: K57.30 Diverticulosis of large intestine without perforation or abscess without bleeding (principal); K57.92 Diverticulitis of intestine, part unspecified, without perforation or abscess without bleeding; K43.9 Ventral hernia without obstruction or gangrene; Z79.899 Other long term (current) drug therapy; Z88.6 Allergy status to analgesic agent; Z88.8 Allergy status to other drugs, medicaments and biological substances; Z91.018 Allergy to other foods; Z86.14 Personal history of Methicillin resistant Staphylococcus aureus infection; Z90.49 Acquired absence of other specified parts of digestive tract
CPT/HCPCS: 99285; 96374; 96375 ×2; 96361 ×2; 36415; 80053; 82150; 83690; 85025; 81001; 87040; 74177; J2270; J2405; J1885; Q9967